=== PATIENT | female | born 1940 | race Caucasian/White ===

== ENCOUNTER → 2017-04-13 | Outpatient (CLI) | payer OTHER ==
--- NOTE | 2017-04-13 17:03 | RAD ---
HISTORY: Contusion of the lower back and pelvis. Study: Multiple views of the lumbar spine and sacrum. Comparison: None. Findings: 5 [id number] lumbar vertebra. Diffuse osteopenia. No acute fracture or listhesis. Multilevel di sc space narrowing, which is worse at L5-S1 with moderate disk height loss. Multilevel facet arthros is and small anterior disc osteophyte complexes. Mild osteoarthritis of the visualized SI joints. Th e sacrum and coccyx appear intact. Mild osteoarthritis of the bilateral hips. Vascular calcification s are seen. IMPRESSION: No acute osseous abnormality. Reported By:
--- NOTE | 2017-04-13 17:03 | RAD ---
HISTORY: Contusion of the lower back and pelvis. Study: Multiple views of the lumbar spine and sacrum. Comparison: None. Findings: 5 [id number] lumbar vertebra. Diffuse osteopenia. No acute fracture or listhesis. Multilevel di sc space narrowing, which is worse at L5-S1 with moderate disk height loss. Multilevel facet arthros is and small anterior disc osteophyte complexes. Mild osteoarthritis of the visualized SI joints. Th e sacrum and coccyx appear intact. Mild osteoarthritis of the bilateral hips. Vascular calcification s are seen. IMPRESSION: No acute osseous abnormality. Reported By:
== END ==
LOC: RAD 16:11
PROVIDERS: ATTEND Obstetrics & Gynecology Obstetrics
DX: S30.0XXA Contusion of lower back and pelvis, initial encounter (principal); X58.XXXA Exposure to other specified factors, initial encounter
CPT/HCPCS: 72110; 72220

== ENCOUNTER 2018-03-18 16:00 | Inpatient (IN) ==
[2018-03-18 15:43] LABS: APPEARANCE,URINE CLOUDY (CLEAR); BILIRUBIN,URINE 1+ (NEGATIVE); BLOOD/HEMOGLOBIN,URINE 1+ (NEGATIVE); COLOR,URINE DARK YELLOW (YELLOW); GLUCOSE, URINE NEGATIVE (NEGATIVE); KETONES,URINE 1+ (NEGATIVE); LEUKOCYTE ESTERASE ,URINE 1+ (NEGATIVE); NITRITES,URINE NEGATIVE (NEGATIVE); PROTEIN,URINE 2+ (NEGATIVE); UROBILINOGEN,URINE 1+ (NORMAL)
[2018-03-18 15:46] LABS: AMORPHOUS SEDIMENT,UR 3+ /HPF (NEGATIVE); BACTERIA,URINE NEGATIVE /HPF (NEGATIVE); RBC,URINE 0-2 /HPF (NONE SEEN); SQUAMOUS EPITHELIAL CELL,UR RARE /HPF (NEGATIVE)
[2018-03-18 15:47] LABS: HYALINE CASTS, URINE FEW /LPF (NEGATIVE)
--- NOTE | 2018-03-18 15:57 | CT ---
CT abdomen and pelvis without contrast Indication: Abdominal pain with nausea vomiting and concern for free air on recent KUB Comparison: KUB performed on same day Technique: Multiple axial images of the abdomen and pelvis were obtained from the lung bases to the pubic symphy sis without the administration of IV contrast. Findings: Lung bases demonstrate scarring/atelectasis within the right lung base. Large volume free air is note d within the abdomen. The multiple foci of gas are noted throughout the peritoneal cavity. There is a lso gas noted within the right retroperitoneum adjacent to the kidney. Given limitations of a noncontrast examination no focal hepatic lesion is identified. The gallbladder is surgically absent. The spleen, pancreas and adrenal glands are unremarkable. There is moderate co mmon bile duct dilatation the level the ampulla without obstructing stone or mass visualized. The adr enal glands are normal. Neither kidney demonstrates evidence of nephrolithiasis, hydronephrosis or ma ss. Urinary bladder is collapsed around a Anderson catheter. Bilateral inguinal hernias are noted both t he which contain loops of small bowel . There is diffuse fluid distention of multiple loops of small bowel. No transition point identified. Stomach demonstrates circumferential focal bowel wall thickeni ng within the distal stomach for example on axial image 34 and coronal image 11 with adjacent mildly enlarged perigastric lymph nodes. The rectum and colon are unremarkable aside for distal colonic dive rticulosis without evidence of acute diverticulitis. The small amount of stranding is noted within th e perineum and mesenteric. Calcified atherosclerotic disease is noted within the normal caliber abdom inal aorta. Review of bone windows demonstrates no acute osseous abnormality. There is moderate degen erative change noted within the lower lumbar spine with a grade 1 anterolisthesis of L4. Impression: 1.Moderate amount of free intraperitoneal air with small amount of free air noted within the right re troperitoneum. Large volume non localizing fluid is noted within the right lower quadrant which is alvarez spicious for developing abscess formation. Site of perforation is not definitely identified. There is focal circumferential thickening of the distal stomach with adjacent enlarged perigastric lymph node s which is suspicious for underlying ulcer or gastric malignancy and potentially a source of perforat ion; however it there is no localizing fluid collection seen in this location to confirm site of perf oration. Other considerations would include decompression of a small-bowel obstruction given bilatera l inguinal hernias containing loops of herniated small bowel. Surgical consultation is recommended. 2. Distal colonic diverticulosis without evidence of acute diverticulitis. 3. Refer to above for other incidental findings. Reported By:
[~2018-03-18 16:00] MED LIST: BREVIBLOC ONE; CIPRO IV 400 MG PREMIX* 400 MG/200 ML IV.SOLN. IV SCH; DIPRIVAN VIAL ONE; EPHEDRINE SULFATE INJ ONE; FLAGYL IV PREMIX 500 MG BAG 500 MG/100 ML BAG IV SCH; NEOSTIGMINE INJ ONE; NORCURON INJ 10 MG VIAL ONE; NS 1000 ML 1,000 ML ONE; QUELICIN (OR ANECTINE) ONE; ROBINUL ONE; SUPRANE IN ONE; VERSED ONE; ZOFRAN INJ 4 MG VIAL ONE
[2018-03-18] MEDS ORDERED: PROTONIX INJ 40 MG VIAL ONE (16:08)
[2018-03-18] MEDS: BACITRACIN VIAL ONE ×2 (17:03→19:17)
[2018-03-18 17:38] LABS: BASOPHILS # (AUTO) 0.1 X10^3/uL (0.0-0.1); BASOPHILS % (AUTO) 0.6 % (0.2-1.0); HEMOGLOBIN 13.2 g/dL (12.0-16.0); LYMPHOCYTES # (AUTO) 0.7 X10^3/uL (1.3-2.9); LYMPHOCYTES % (AUTO) 4.8 % (21.0-51.0); MEAN CORPUSCULAR HEMOGLOBIN 31.1 pg (27.0-34.0); MEAN CORPUSCULAR HGB CONC 33.8 g/dL (33.0-35.0); MEAN CORPUSCULAR VOLUME 92.1 fL (80.0-100.0); MEAN PLATELET VOLUME 9.8 fL (7.4-11.0); MONOCYTES # (AUTO) 0.5 x10^3/uL (0.3-0.8); MONOCYTES % (AUTO) 3.6 % (0.0-13.0); NEUTROPHILS # (AUTO) 13.2 x10^3/uL (2.2-4.8); PLATELET COUNT 297 X10^3/uL (150.0-450.0); RED BLOOD COUNT 4.24 X10^6/uL (3.5-5.4); RED CELL DISTRIBUTION WIDTH 13.3 % (11.6-16.5); WHITE BLOOD COUNT 14.5 X10^3/uL (3.6-10.0)
[2018-03-18 17:39] LABS: BAND NEUTROPHILS % 11 % (0-10); PLATELET MORPHOLOGY COMMENT NORMAL (NORMAL)
[2018-03-18] MEDS ORDERED: NS 1000 ML 1,000 ML ONE (17:45)
[2018-03-18] MEDS ORDERED: FLAGYL IV PREMIX 500 MG BAG 500 MG/100 ML BAG IV ONE ×2 (18:00→23:42)
[2018-03-18] MEDS ORDERED: ANCEF IV ONE (18:00)
[2018-03-18] MEDS ORDERED: FENTANYL INJ 250 mcg ONE (18:01)
[2018-03-18] MEDS ORDERED: LR 1000 ML IV 1,000 ML IV ONE (19:33)
[2018-03-18 19:53] LABS: ALANINE AMINOTRANSFERASE 17 Units/L (12-78); ALBUMIN 3.4 g/dL (3.4-5.0); ALKALINE PHOSPHATASE 55 Units/L (46-116); ASPARTATE AMINO TRANSFERASE 13 Units/L (15-37); BLOOD UREA NITROGEN 35 mg/dL (7-18); CALCIUM 8.7 mg/dL (8.5-10.1); CARBON DIOXIDE 24.4 mmol/L (21-32); CHLORIDE 95 mmol/L (98-107); COR NA(FOR HYPERGLY) 136 mmol/L (136-145); SODIUM 133 mmol/L (136-145); TOTAL PROTEIN 7.7 g/dL (6.4-8.2); eGFR NON BLACK RACES 13 (>60)
[2018-03-18] MEDS ORDERED: ZOFRAN INJ 4 MG VIAL IVP PRN (20:01)
[2018-03-18] MEDS ORDERED: BENADRYL INJ 50 MG VIAL IVP PRN (20:01)
[2018-03-18] MEDS ORDERED: REGLAN INJ 10 MG VIAL IVP PRN (20:01)
[2018-03-18] MEDS ORDERED: DILAUDID INJ IVP PRN ×3 (20:01→22:37)
[2018-03-18] MEDS ORDERED: PHENERGAN INJ 25 MG IVP PRN (20:01)
[2018-03-18] MEDS ORDERED: D5 1/2 NS 1000 ML 1,000 ML IV ONE (21:48)
[2018-03-18] MEDS ORDERED: ZOSYN VIAL 3.375 GRAMS 3.375 G in NS 100 ML IV + SPIKE MINIBAG* 100 ML IV SCH (22:00)
--- NOTE | 2018-03-18 22:06 | OR.GENERIC ---
Post-Op Note Generic - Post-Op Note Operative Report: exploratory laparotomy , partial gastrectomy with Billroth II gastro jejunostomy findings : perforated distal gastric ulcer posteriorly with peritonitis .. large Lt inguinal hernia EBL 200 cc . pt did well , no complication . see OR report
[2018-03-18] MEDS ORDERED: D5 1/2 NS + KCL 20 MEQ/L 1,000 ML IV PRN (22:37)
[2018-03-18] MEDS: ZOSYN VIAL 2.25 GRAMS 2.25 G in NS 100 ML IV + SPIKE MINIBAG* 100 ML IV SCH (22:50)
[2018-03-18] MEDS ORDERED: PHARMACY CONSULT - DOSE _____ XX SCH (23:45)
[2018-03-19] MEDS: D5 1/2 NS 1000 ML 1,000 ML IV SCH ×4 (00:07→23:45)
[2018-03-19 00:14] LABS: BASOPHILS % (AUTO) 0.3 % (0.2-1.0); HEMATOCRIT 37.4 % (36.0-47.0); HEMOGLOBIN 12.4 g/dL (12.0-16.0); LYMPHOCYTES # (AUTO) 0.7 X10^3/uL (1.3-2.9); LYMPHOCYTES % (AUTO) 8.4 % (21.0-51.0); MEAN CORPUSCULAR HEMOGLOBIN 31.2 pg (27.0-34.0); MEAN CORPUSCULAR HGB CONC 33.3 g/dL (33.0-35.0); MEAN CORPUSCULAR VOLUME 93.9 fL (80.0-100.0); MEAN PLATELET VOLUME 9.7 fL (7.4-11.0); MONOCYTES # (AUTO) 0.4 x10^3/uL (0.3-0.8); MONOCYTES % (AUTO) 4.3 % (0.0-13.0); NEUTROPHILS # (AUTO) 7.7 x10^3/uL (2.2-4.8); PLATELET COUNT 251 X10^3/uL (150.0-450.0); RED BLOOD COUNT 3.98 X10^6/uL (3.5-5.4); RED CELL DISTRIBUTION WIDTH 13.5 % (11.6-16.5); WHITE BLOOD COUNT 8.9 X10^3/uL (3.6-10.0)
[2018-03-19 00:24] LABS: ALBUMIN 2.3 g/dL (3.4-5.0); CALCIUM 6.7 mg/dL (8.5-10.1); CARBON DIOXIDE 19.3 mmol/L (21-32); COR CA(FOR HYPOALB) 8.1 mg/dL (8.5-10.1); CREATININE 2.69 mg/dL (0.55-1.02)
[2018-03-19] MEDS ORDERED: FLAGYL IV PREMIX 500 MG BAG 500 MG/100 ML BAG IV SCH ×2 (03:00→06:00)
[2018-03-19] MEDS: FLAGYL IV PREMIX 500 MG BAG 500 MG/100 ML BAG IV SCH ×3 (05:19→17:33)
[2018-03-19] MEDS: ZOSYN VIAL 2.25 GRAMS 2.25 G in NS 100 ML IV + SPIKE MINIBAG* 100 ML IV SCH ×3 (05:19→21:08)
[2018-03-19] MEDS ORDERED: ZOSYN IV SCH (06:00)
[2018-03-19] MEDS ORDERED: NS IV SCH (06:00)
[2018-03-19] MEDS ORDERED: SPIKE MINIBAG IV SCH (06:00)
[2018-03-19 06:48] LABS: ALBUMIN 2.2 g/dL (3.4-5.0); CALCIUM 6.9 mg/dL (8.5-10.1); CARBON DIOXIDE 21.7 mmol/L (21-32); COR CA(FOR HYPOALB) 8.3 mg/dL (8.5-10.1); CREATININE 2.49 mg/dL (0.55-1.02); TOTAL PROTEIN 5.6 g/dL (6.4-8.2)
[2018-03-19] MEDS ORDERED: POTASSIUM CHL 60 MEQ/NS 0.45% 500 ML IV PRN (06:57)
[2018-03-19] MEDS ORDERED: POTASSIUM CHLORIDE LIQ 20 MEQ UDC PO PRN (06:57)
[2018-03-19] MEDS ORDERED: K-LYTE EFFERVESCENT PO PRN (06:57)
[2018-03-19] MEDS ORDERED: K-RIDER 10 MEQ/NS 100 ML 10 MEQ/100 ML BAG IV PRN (06:57)
[2018-03-19] MEDS ORDERED: POTASSIUM CHL 40 MEQ/NS 0.45% 500 ML IV PRN (06:57)
[2018-03-19] MEDS ORDERED: NS 1000 ML 2,000 ML IV ONE (07:49)
[2018-03-19 08:03] LABS: BASOPHILS % (AUTO) 0.6 % (0.2-1.0); EOSINOPHILS % (AUTO) 0.9 % (0.9-2.9); HEMATOCRIT 37.2 % (36.0-47.0); HEMOGLOBIN 12.6 g/dL (12.0-16.0); MEAN CORPUSCULAR HEMOGLOBIN 31.3 pg (27.0-34.0); MEAN CORPUSCULAR HGB CONC 33.8 g/dL (33.0-35.0); MEAN CORPUSCULAR VOLUME 92.8 fL (80.0-100.0); MEAN PLATELET VOLUME 10.2 fL (7.4-11.0); MONOCYTES # (AUTO) 0.3 x10^3/uL (0.3-0.8); MONOCYTES % (AUTO) 4.8 % (0.0-13.0); NEUTROPHILS # (AUTO) 4.1 x10^3/uL (2.2-4.8); NEUTROPHILS % (AUTO) 75.7 % (42.0-75.0); PLATELET COUNT 258 X10^3/uL (150.0-450.0); RED BLOOD COUNT 4.01 X10^6/uL (3.5-5.4); RED CELL DISTRIBUTION WIDTH 13.6 % (11.6-16.5); WHITE BLOOD COUNT 5.4 X10^3/uL (3.6-10.0)
--- NOTE | 2018-03-19 08:16 | DR.PROGNOT ---
Hospital Progress Notes - Progress Note for Day of: Progress Note Date: 03/19/18 - Chief Complaint Chief Complaint: PO day 1 , s/p gastrectomy for large perforated distal gastric and duodenal ulcer , repair of Lt inguinal hernia .. doing very well today , urine OP still on the low side . no bile drainage in KADI,. afebrile . - Past Medical Family Social History Past Med/Fam/Surg Hx: No changes since H&P Allergies: Allergies No Known Drug Allergies Allergy (Verified 03/18/18 15:04) - Review Of Systems ROS: No change since H&P - Vital Signs Vital Signs: Temperature 98.4 F Pulse Rate [Apical] 112 Pulse Rate [Bilateral Radial] 79 Pulse Rate 130 Respiratory Rate 20 Blood Pressure [RIGHT WRIST] 125/58 Blood Pressure 158/73 O2 Sat by Pulse Oximetry 97 - Physical Exam GI:Auscultation: Decreased GI: Tenderness: Diffuse, Moderate (soft abdomen with generalized tenderness , BS hypoactive .) Speech Pattern: Clear, Appropriate - Laboratory and Diagnostics Result Diagrams: 03/19/18 05:14 03/19/18 05:14 Labs: 03/18/18 19:36 Abdomen Gram Stain - Final Laboratory WBC 5.4 X10^3/uL (3.6-10.0) 03/19/18 05:14 RBC 4.01 X10^6/uL (3.5-5.4) 03/19/18 05:14 Hgb 12.6 g/dL (12.0-16.0) 03/19/18 05:14 Hct 37.2 % (36.0-47.0) 03/19/18 05:14 MCV 92.8 fL (80.0-100.0) 03/19/18 05:14 MCH 31.3 pg (27.0-34.0) 03/19/18 05:14 MCHC 33.8 g/dL (33.0-35.0) 03/19/18 05:14 RDW 13.6 % (11.6-16.5) 03/19/18 05:14 Plt Count 258 X10^3/uL (150.0-450.0) 03/19/18 05:14 Plt Count Comment Adequate (ADEQUATE) 03/18/18 11:23 MPV 10.2 fL (7.4-11.0) 03/19/18 05:14 Neut % (Auto) 75.7 % (42.0-75.0) H 03/19/18 05:14 Lymph % (Auto) 18.0 % (21.0-51.0) L 03/19/18 05:14 [place] % (Auto) 4.8 % (0.0-13.0) 03/19/18 05:14 Eos % (Auto) 0.9 % (0.9-2.9) 03/19/18 05:14 Baso % (Auto) 0.6 % (0.2-1.0) 03/19/18 05:14 Neut # (Auto) 4.1 x10^3/uL (2.2-4.8) 03/19/18 05:14 Lymph # (Auto) 1.0 X10^3/uL (1.3-2.9) L 03/19/18 05:14 [place] # (Auto) 0.3 x10^3/uL (0.3-0.8) 03/19/18 05:14 Eos # (Auto) 0.0 x10^3/uL (0.0-0.2) 03/19/18 05:14 Baso # (Auto) 0.0 X10^3/uL (0.0-0.1) 03/19/18 05:14 Absolute Nucleated RBC 0.0 /100WBC 03/19/18 05:14 Total Counted 100 03/18/18 11:23 Neutrophils % (Manual) 77 % (39-76) H 03/18/18 11:23 Band Neutrophils % 11 % (0-10) H 03/18/18 11:23 Lymphocytes % (Manual) 11 % (13-43) L 03/18/18 11:23 Monocytes % (Manual) 1 % (4-9) L 03/18/18 11:23 Plt Morphology Comment Normal (NORMAL) 03/18/18 11:23 RBC Morphology Normal (NORMAL) 03/18/18 11:23 Sodium 135 mmol/L (136-145) L 03/19/18 05:14 Corrected Sodium 136 mmol/L (136-145) 03/19/18 05:14 Potassium 4.1 mmol/L (3.5-5.1) 03/19/18 05:14 Chloride 103 mmol/L (98-107) 03/19/18 05:14 Carbon Dioxide 21.7 mmol/L (21-32) 03/19/18 05:14 BUN 34 mg/dL (7-18) H 03/19/18 05:14 Creatinine 2.49 mg/dL (0.55-1.02) H 03/19/18 05:14 Est GFR (MDRD) Af Amer 24 (>60) L 03/19/18 05:14 Est GFR (MDRD) Non-Af 20 (>60) L 03/19/18 05:14 Glucose 124 mg/dL (65-99) H 03/19/18 05:14 Calcium 6.9 mg/dL (8.5-10.1) L 03/19/18 05:14 Corrected Calcium 8.3 mg/dL (8.5-10.1) L 03/19/18 05:14 Magnesium 1.4 mg/dL (1.7-2.9) L 03/19/18 05:14 Total Bilirubin 0.40 mg/dL (0.2-1.0) 03/19/18 05:14 AST 26 Units/L (15-37) 03/19/18 05:14 ALT 16 Units/L (12-78) 03/19/18 05:14 Alkaline Phosphatase 45 Units/L (46-116) L 03/19/18 05:14 Total Protein 5.6 g/dL (6.4-8.2) L 03/19/18 05:14 Albumin 2.2 g/dL (3.4-5.0) L 03/19/18 05:14 Globulin 3.4 g/dL (2.5-4.5) 03/19/18 05:14 Albumin/Globulin Ratio 0.6 Ratio (1.1-2.1) L 03/19/18 05:14 Specimen Type Catherized urine 03/18/18 15:17 Urine Color Dark yellow (YELLOW) 03/18/18 15:17 Urine Appearance Cloudy (CLEAR) 03/18/18 15:17 Urine pH 5.0 (5.0 - 8.0) 03/18/18 15:17 Ur Specific [place] 1.020 (1.000-1.030) 03/18/18 15:17 Urine Protein 2+ (NEGATIVE) 03/18/18 15:17 Urine Glucose (UA) Negative (NEGATIVE) 03/18/18 15:17 Urine Ketones 1+ (NEGATIVE) 03/18/18 15:17 Urine Occult Blood 1+ (NEGATIVE) 03/18/18 15:17 Urine Nitrite Negative (NEGATIVE) 03/18/18 15:17 Urine Bilirubin 1+ (NEGATIVE) 03/18/18 15:17 Urine Urobilinogen 1+ (NORMAL) 03/18/18 15:17 Ur Leukocyte Esterase 1+ (NEGATIVE) 03/18/18 15:17 Urine RBC 0-2 /HPF (NONE SEEN) 03/18/18 15:17 Urine WBC 0-2 /HPF (NONE SEEN) 03/18/18 15:17 Ur Squamous Epith Cells Rare /HPF (NEGATIVE) 03/18/18 15:17 Amorphous Sediment 3+ /HPF (NEGATIVE) 03/18/18 15:17 Urine Bacteria Negative /HPF (NEGATIVE) 03/18/18 15:17 Hyaline Casts Few /LPF (NEGATIVE) 03/18/18 15:17 Ur Culture Indicated? No/not indicated 03/18/18 15:17 Tissue Pathology To follow 03/18/18 22:58 - Assessment and Plan 1: perforated large distal gastric and duodenal ulcer. peritonitis . Lt inguinal hernia. dehydration . s/p gastrectomy . same PO care , ATB . DVT prophylaxis , IVF , OOB
[2018-03-19] MEDS: PROTONIX INJ 40 MG VIAL IVP SCH (08:55)
[2018-03-19] MEDS: ARICEPT TAB 10 MG PO SCH (08:56)
[2018-03-19] MEDS: LOVENOX INJ 40 MG SYR SC SCH (08:56)
[2018-03-19] MEDS ORDERED: LOVENOX INJ 40 MG SYR SC SCH (09:00)
[2018-03-19] MEDS ORDERED: CIPRO IV 400 MG PREMIX* 400 MG/200 ML IV.SOLN. IV SCH (09:00)
[2018-03-19] MEDS: MAGNESIUM SULFATE 1 GRAM/100 mL PREMIX 1 GM/100 ML BAG IV PRN ×4 (12:10→21:09)
[2018-03-19 12:15] VITALS: BMI 24.6
[2018-03-19] MEDS ORDERED: ROPINIROLE PO SCH (21:00)
[2018-03-19] MEDS: REQUIP PO SCH (21:07)
[2018-03-19] MEDS: AMBIEN PO SCH (22:24)
[2018-03-20] MEDS: FLAGYL IV PREMIX 500 MG BAG 500 MG/100 ML BAG IV SCH ×4 (04:00→18:00)
[2018-03-20] MEDS: D5 1/2 NS 1000 ML 1,000 ML IV SCH ×2 (04:32→06:44)
[2018-03-20] MEDS: ZOSYN VIAL 2.25 GRAMS 2.25 G in NS 100 ML IV + SPIKE MINIBAG* 100 ML IV SCH ×3 (05:40→21:18)
[2018-03-20 06:06] LABS: BASOPHILS % (AUTO) 0.5 % (0.2-1.0); EOSINOPHILS # (AUTO) 0.2 x10^3/uL (0.0-0.2); EOSINOPHILS % (AUTO) 3.6 % (0.9-2.9); HEMATOCRIT 29.8 % (36.0-47.0); HEMOGLOBIN 10.4 g/dL (12.0-16.0); LYMPHOCYTES % (AUTO) 14.7 % (21.0-51.0); MEAN CORPUSCULAR HEMOGLOBIN 31.7 pg (27.0-34.0); MEAN CORPUSCULAR HGB CONC 34.9 g/dL (33.0-35.0); MEAN PLATELET VOLUME 9.1 fL (7.4-11.0); MONOCYTES # (AUTO) 0.3 x10^3/uL (0.3-0.8); MONOCYTES % (AUTO) 4.5 % (0.0-13.0); NEUTROPHILS % (AUTO) 76.7 % (42.0-75.0); PLATELET COUNT 226 X10^3/uL (150.0-450.0); RED BLOOD COUNT 3.28 X10^6/uL (3.5-5.4); RED CELL DISTRIBUTION WIDTH 13.4 % (11.6-16.5); WHITE BLOOD COUNT 6.6 X10^3/uL (3.6-10.0)
[2018-03-20 06:29] LABS: ALANINE AMINOTRANSFERASE 24 Units/L (12-78); ALBUMIN 1.9 g/dL (3.4-5.0); ALKALINE PHOSPHATASE 48 Units/L (46-116); ASPARTATE AMINO TRANSFERASE 37 Units/L (15-37); BLOOD UREA NITROGEN 21 mg/dL (7-18); CALCIUM 7.1 mg/dL (8.5-10.1); CARBON DIOXIDE 22.7 mmol/L (21-32); CHLORIDE 106 mmol/L (98-107); COR CA(FOR HYPOALB) 8.8 mg/dL (8.5-10.1); CREATININE 1.57 mg/dL (0.55-1.02); MAGNESIUM 2.5 mg/dL (1.7-2.9); SODIUM 137 mmol/L (136-145); TOTAL PROTEIN 5.2 g/dL (6.4-8.2); eGFR NON BLACK RACES 34 (>60)
[2018-03-20] MEDS: ARICEPT TAB 10 MG PO SCH (08:20)
[2018-03-20] MEDS: LOVENOX INJ 40 MG SYR SC SCH (08:20)
[2018-03-20] MEDS: PROTONIX INJ 40 MG VIAL IVP SCH (08:20)
--- NOTE | 2018-03-20 09:55 | DR.PROGNOT ---
Hospital Progress Notes - Progress Note for Day of: Progress Note Date: 03/20/18 - Chief Complaint Chief Complaint: PO day 2 , s/p gastrectomy for large perforated distal gastric and duodenal ulcer , repair of Lt inguinal hernia .. doing very well today ,. minimal drainage in NGT. no bile drainage in KADI,. renal function is improving . - Past Medical Family Social History Past Med/Fam/Surg Hx: No changes since H&P Allergies: Allergies No Known Drug Allergies Allergy (Verified 03/18/18 15:04) - Review Of Systems ROS: No change since H&P - Vital Signs Vital Signs: Temperature 99.3 F Pulse Rate [Apical] 86 Pulse Rate [Bilateral Radial] 79 Pulse Rate 88 Respiratory Rate 22 Blood Pressure [RIGHT WRIST] 144/65 Blood Pressure 158/73 O2 Sat by Pulse Oximetry 100 - Physical Exam GI:Auscultation: Decreased GI: Tenderness: Diffuse, Moderate (soft abdomen with generalized tenderness , BS hypoactive .) Speech Pattern: Clear, Appropriate - Laboratory and Diagnostics Result Diagrams: 03/20/18 04:42 03/20/18 04:42 Labs: 03/18/18 19:36 Abdomen Gram Stain - Final 03/18/18 19:36 Abdomen Wound Culture - Preliminary Laboratory WBC 6.6 X10^3/uL (3.6-10.0) 03/20/18 04:42 RBC 3.28 X10^6/uL (3.5-5.4) L 03/20/18 04:42 Hgb 10.4 g/dL (12.0-16.0) L D 03/20/18 04:42 Hct 29.8 % (36.0-47.0) L 03/20/18 04:42 MCV 91.0 fL (80.0-100.0) 03/20/18 04:42 MCH 31.7 pg (27.0-34.0) 03/20/18 04:42 MCHC 34.9 g/dL (33.0-35.0) 03/20/18 04:42 RDW 13.4 % (11.6-16.5) 03/20/18 04:42 Plt Count 226 X10^3/uL (150.0-450.0) 03/20/18 04:42 Plt Count Comment Adequate (ADEQUATE) 03/18/18 11:23 MPV 9.1 fL (7.4-11.0) 03/20/18 04:42 Neut % (Auto) 76.7 % (42.0-75.0) H 03/20/18 04:42 Lymph % (Auto) 14.7 % (21.0-51.0) L 03/20/18 04:42 [place] % (Auto) 4.5 % (0.0-13.0) 03/20/18 04:42 Eos % (Auto) 3.6 % (0.9-2.9) H 03/20/18 04:42 Baso % (Auto) 0.5 % (0.2-1.0) 03/20/18 04:42 Neut # (Auto) 5.0 x10^3/uL (2.2-4.8) H 03/20/18 04:42 Lymph # (Auto) 1.0 X10^3/uL (1.3-2.9) L 03/20/18 04:42 [place] # (Auto) 0.3 x10^3/uL (0.3-0.8) 03/20/18 04:42 Eos # (Auto) 0.2 x10^3/uL (0.0-0.2) 03/20/18 04:42 Baso # (Auto) 0.0 X10^3/uL (0.0-0.1) 03/20/18 04:42 Absolute Nucleated RBC 0.0 /100WBC 03/20/18 04:42 Total Counted 100 03/18/18 11:23 Neutrophils % (Manual) 77 % (39-76) H 03/18/18 11:23 Band Neutrophils % 11 % (0-10) H 03/18/18 11:23 Lymphocytes % (Manual) 11 % (13-43) L 03/18/18 11:23 Monocytes % (Manual) 1 % (4-9) L 03/18/18 11:23 Plt Morphology Comment Normal (NORMAL) 03/18/18 11:23 RBC Morphology Normal (NORMAL) 03/18/18 11:23 Sodium 137 mmol/L (136-145) 03/20/18 04:42 Corrected Sodium TNP 03/20/18 04:42 Potassium 3.9 mmol/L (3.5-5.1) 03/20/18 04:42 Chloride 106 mmol/L (98-107) 03/20/18 04:42 Carbon Dioxide 22.7 mmol/L (21-32) 03/20/18 04:42 BUN 21 mg/dL (7-18) H 03/20/18 04:42 Creatinine 1.57 mg/dL (0.55-1.02) H 03/20/18 04:42 Est GFR (MDRD) Af Amer 41 (>60) L 03/20/18 04:42 Est GFR (MDRD) Non-Af 34 (>60) L 03/20/18 04:42 Glucose 97 mg/dL (65-99) 03/20/18 04:42 Calcium 7.1 mg/dL (8.5-10.1) L 03/20/18 04:42 Corrected Calcium 8.8 mg/dL (8.5-10.1) 03/20/18 04:42 Magnesium 2.5 mg/dL (1.7-2.9) 03/20/18 04:42 Total Bilirubin 0.40 mg/dL (0.2-1.0) 03/20/18 04:42 AST 37 Units/L (15-37) 03/20/18 04:42 ALT 24 Units/L (12-78) 03/20/18 04:42 Alkaline Phosphatase 48 Units/L (46-116) 03/20/18 04:42 Total Protein 5.2 g/dL (6.4-8.2) L 03/20/18 04:42 Albumin 1.9 g/dL (3.4-5.0) L 03/20/18 04:42 Globulin 3.3 g/dL (2.5-4.5) 03/20/18 04:42 Albumin/Globulin Ratio 0.6 Ratio (1.1-2.1) L 03/20/18 04:42 Specimen Type Catherized urine 03/18/18 15:17 Urine Color Dark yellow (YELLOW) 03/18/18 15:17 Urine Appearance Cloudy (CLEAR) 03/18/18 15:17 Urine pH 5.0 (5.0 - 8.0) 03/18/18 15:17 Ur Specific [place] 1.020 (1.000-1.030) 03/18/18 15:17 Urine Protein 2+ (NEGATIVE) 03/18/18 15:17 Urine Glucose (UA) Negative (NEGATIVE) 03/18/18 15:17 Urine Ketones 1+ (NEGATIVE) 03/18/18 15:17 Urine Occult Blood 1+ (NEGATIVE) 03/18/18 15:17 Urine Nitrite Negative (NEGATIVE) 03/18/18 15:17 Urine Bilirubin 1+ (NEGATIVE) 03/18/18 15:17 Urine Urobilinogen 1+ (NORMAL) 03/18/18 15:17 Ur Leukocyte Esterase 1+ (NEGATIVE) 03/18/18 15:17 Urine RBC 0-2 /HPF (NONE SEEN) 03/18/18 15:17 Urine WBC 0-2 /HPF (NONE SEEN) 03/18/18 15:17 Ur Squamous Epith Cells Rare /HPF (NEGATIVE) 03/18/18 15:17 Amorphous Sediment 3+ /HPF (NEGATIVE) 03/18/18 15:17 Urine Bacteria Negative /HPF (NEGATIVE) 03/18/18 15:17 Hyaline Casts Few /LPF (NEGATIVE) 03/18/18 15:17 Ur Culture Indicated? No/not indicated 03/18/18 15:17 Tissue Pathology To follow 03/18/18 22:58 - Assessment and Plan 1: perforated large distal gastric and duodenal ulcer. peritonitis . Lt inguinal hernia. dehydration . s/p gastrectomy . same PO care , ATB . DVT prophylaxis , IVF , OOB. will d/c NGT and keep NPO except some ice ..
[2018-03-20] MEDS ORDERED: GLUCOPHAGE XR PO SCH (13:00)
[2018-03-20] MEDS ORDERED: PATIENT'S HOME MEDICATION (Lisinopril-Hydrochlorothiazide [Lisinopril-Hydrochlorothiazide] PO SCH (13:00)
[2018-03-20] MEDS: LR 1000 ML IV 1,000 ML IV SCH ×2 (13:20→21:26)
[2018-03-20] MEDS ORDERED: NEURONTIN CAP 400 MG PO SCH (21:00)
[2018-03-20] MEDS ORDERED: PATIENT'S HOME MEDICATION (Gabapentin [Gabapentin] 1 TAB) PO SCH (21:00)
[2018-03-20] MEDS ORDERED: NEURONTIN CAP 400 MG PO ONE (21:08)
[2018-03-20] MEDS: GLUCOPHAGE XR PO SCH (21:13)
[2018-03-20] MEDS: REQUIP PO SCH (21:14)
[2018-03-20] MEDS: AMBIEN PO SCH (21:19)
[2018-03-20] MEDS: NEURONTIN CAP 400 MG PO SCH (21:46)
[2018-03-21] MEDS: LR 1000 ML IV 1,000 ML IV SCH ×2 (05:08→13:59)
[2018-03-21] MEDS: FLAGYL IV PREMIX 500 MG BAG 500 MG/100 ML BAG IV SCH ×4 (05:08→18:55)
[2018-03-21] MEDS: ZOSYN VIAL 2.25 GRAMS 2.25 G in NS 100 ML IV + SPIKE MINIBAG* 100 ML IV SCH ×3 (06:07→22:14)
[2018-03-21 06:28] LABS: BASOPHILS % (AUTO) 0.4 % (0.2-1.0); EOSINOPHILS # (AUTO) 0.2 x10^3/uL (0.0-0.2); EOSINOPHILS % (AUTO) 3.6 % (0.9-2.9); HEMATOCRIT 26.9 % (36.0-47.0); HEMOGLOBIN 9.4 g/dL (12.0-16.0); LYMPHOCYTES # (AUTO) 0.9 X10^3/uL (1.3-2.9); MEAN CORPUSCULAR HEMOGLOBIN 31.7 pg (27.0-34.0); MEAN CORPUSCULAR HGB CONC 35.1 g/dL (33.0-35.0); MEAN CORPUSCULAR VOLUME 90.3 fL (80.0-100.0); MEAN PLATELET VOLUME 8.6 fL (7.4-11.0); MONOCYTES # (AUTO) 0.3 x10^3/uL (0.3-0.8); NEUTROPHILS # (AUTO) 3.9 x10^3/uL (2.2-4.8); PLATELET COUNT 222 X10^3/uL (150.0-450.0); RED BLOOD COUNT 2.98 X10^6/uL (3.5-5.4); RED CELL DISTRIBUTION WIDTH 13.1 % (11.6-16.5); WHITE BLOOD COUNT 5.3 X10^3/uL (3.6-10.0)
[2018-03-21 06:32] LABS: ALANINE AMINOTRANSFERASE 23 Units/L (12-78); ALBUMIN 1.7 g/dL (3.4-5.0); ALKALINE PHOSPHATASE 45 Units/L (46-116); ASPARTATE AMINO TRANSFERASE 24 Units/L (15-37); BLOOD UREA NITROGEN 14 mg/dL (7-18); CALCIUM 7.5 mg/dL (8.5-10.1); CARBON DIOXIDE 20.9 mmol/L (21-32); CHLORIDE 106 mmol/L (98-107); COR CA(FOR HYPOALB) 9.3 mg/dL (8.5-10.1); CREATININE 0.93 mg/dL (0.55-1.02); SODIUM 137 mmol/L (136-145); TOTAL PROTEIN 4.7 g/dL (6.4-8.2); eGFR NON BLACK RACES > 60 (>60)
[2018-03-21] MEDS ORDERED: ZESTRIL TAB 20 MG ONE (09:40)
[2018-03-21] MEDS: TOPROL XL PO SCH (09:46)
[2018-03-21] MEDS: ZESTRIL TAB 20 MG PO SCH (09:47)
[2018-03-21] MEDS: PROTONIX INJ 40 MG VIAL IVP SCH (09:48)
[2018-03-21] MEDS: LOVENOX INJ 40 MG SYR SC SCH (09:48)
[2018-03-21] MEDS: ARICEPT TAB 10 MG PO SCH (09:49)
[2018-03-21] MEDS: NORCO 5/325 MG TAB PO PRN (09:51)
--- NOTE | 2018-03-21 10:41 | DR.PROGNOT ---
Hospital Progress Notes - Progress Note for Day of: Progress Note Date: 03/21/18 - Chief Complaint Chief Complaint: PO day 3 , s/p gastrectomy for large perforated distal gastric and duodenal ulcer , repair of Lt inguinal hernia .. doing well today ,. c/o abdominal pain , no BM yet. minimal drainage in NGT. no bile drainage in KADI, . renal function is improving and back to normal . - Past Medical Family Social History Past Med/Fam/Surg Hx: No changes since H&P Allergies: Allergies No Known Drug Allergies Allergy (Verified 03/18/18 15:04) - Review Of Systems ROS: No change since H&P - Vital Signs Vital Signs: Temperature 98.0 F Pulse Rate [Apical] 89 Pulse Rate [Bilateral Radial] 79 Pulse Rate 88 Respiratory Rate 20 Blood Pressure [RIGHT WRIST] 187/86 Blood Pressure 158/73 O2 Sat by Pulse Oximetry 95 - Physical Exam Respiratory: Normal (clear lung both sides) GI:Auscultation: Decreased GI: Tenderness: Diffuse, Moderate (soft abdomen with generalized tenderness , BS hypoactive .) Speech Pattern: Clear, Appropriate - Laboratory and Diagnostics Result Diagrams: 03/21/18 04:47 03/21/18 04:47 Labs: 03/18/18 19:36 Abdomen Gram Stain - Final 03/18/18 19:36 Abdomen Wound Culture - Preliminary Laboratory WBC 5.3 X10^3/uL (3.6-10.0) 03/21/18 04:47 RBC 2.98 X10^6/uL (3.5-5.4) L 03/21/18 04:47 Hgb 9.4 g/dL (12.0-16.0) L 03/21/18 04:47 Hct 26.9 % (36.0-47.0) L 03/21/18 04:47 MCV 90.3 fL (80.0-100.0) 03/21/18 04:47 MCH 31.7 pg (27.0-34.0) 03/21/18 04:47 MCHC 35.1 g/dL (33.0-35.0) H 03/21/18 04:47 RDW 13.1 % (11.6-16.5) 03/21/18 04:47 Plt Count 222 X10^3/uL (150.0-450.0) 03/21/18 04:47 Plt Count Comment Adequate (ADEQUATE) 03/18/18 11:23 MPV 8.6 fL (7.4-11.0) 03/21/18 04:47 Neut % (Auto) 74.0 % (42.0-75.0) 03/21/18 04:47 Lymph % (Auto) 17.0 % (21.0-51.0) L 03/21/18 04:47 [place] % (Auto) 5.0 % (0.0-13.0) 03/21/18 04:47 Eos % (Auto) 3.6 % (0.9-2.9) H 03/21/18 04:47 Baso % (Auto) 0.4 % (0.2-1.0) 03/21/18 04:47 Neut # (Auto) 3.9 x10^3/uL (2.2-4.8) 03/21/18 04:47 Lymph # (Auto) 0.9 X10^3/uL (1.3-2.9) L 03/21/18 04:47 [place] # (Auto) 0.3 x10^3/uL (0.3-0.8) 03/21/18 04:47 Eos # (Auto) 0.2 x10^3/uL (0.0-0.2) 03/21/18 04:47 Baso # (Auto) 0.0 X10^3/uL (0.0-0.1) 03/21/18 04:47 Absolute Nucleated RBC 0.0 /100WBC 03/21/18 04:47 Total Counted 100 03/18/18 11:23 Neutrophils % (Manual) 77 % (39-76) H 03/18/18 11:23 Band Neutrophils % 11 % (0-10) H 03/18/18 11:23 Lymphocytes % (Manual) 11 % (13-43) L 03/18/18 11:23 Monocytes % (Manual) 1 % (4-9) L 03/18/18 11:23 Plt Morphology Comment Normal (NORMAL) 03/18/18 11:23 RBC Morphology Normal (NORMAL) 03/18/18 11:23 Sodium 137 mmol/L (136-145) 03/21/18 04:47 Corrected Sodium TNP 03/21/18 04:47 Potassium 3.5 mmol/L (3.5-5.1) 03/21/18 04:47 Chloride 106 mmol/L (98-107) 03/21/18 04:47 Carbon Dioxide 20.9 mmol/L (21-32) L 03/21/18 04:47 BUN 14 mg/dL (7-18) 03/21/18 04:47 Creatinine 0.93 mg/dL (0.55-1.02) 03/21/18 04:47 Est GFR (MDRD) Af Amer > 60 (>60) 03/21/18 04:47 Est GFR (MDRD) Non-Af > 60 (>60) 03/21/18 04:47 Glucose 96 mg/dL (65-99) 03/21/18 04:47 Calcium 7.5 mg/dL (8.5-10.1) L 03/21/18 04:47 Corrected Calcium 9.3 mg/dL (8.5-10.1) 03/21/18 04:47 Magnesium 2.5 mg/dL (1.7-2.9) 03/20/18 04:42 Ferritin 364 ng/mL (8-252) H 03/21/18 04:47 Total Bilirubin 0.40 mg/dL (0.2-1.0) 03/21/18 04:47 AST 24 Units/L (15-37) 03/21/18 04:47 ALT 23 Units/L (12-78) 03/21/18 04:47 Alkaline Phosphatase 45 Units/L (46-116) L 03/21/18 04:47 Total Protein 4.7 g/dL (6.4-8.2) L 03/21/18 04:47 Albumin 1.7 g/dL (3.4-5.0) L 03/21/18 04:47 Globulin 3.0 g/dL (2.5-4.5) 03/21/18 04:47 Albumin/Globulin Ratio 0.6 Ratio (1.1-2.1) L 03/21/18 04:47 Specimen Type Catherized urine 03/18/18 15:17 Urine Color Dark yellow (YELLOW) 03/18/18 15:17 Urine Appearance Cloudy (CLEAR) 03/18/18 15:17 Urine pH 5.0 (5.0 - 8.0) 03/18/18 15:17 Ur Specific [place] 1.020 (1.000-1.030) 03/18/18 15:17 Urine Protein 2+ (NEGATIVE) 03/18/18 15:17 Urine Glucose (UA) Negative (NEGATIVE) 03/18/18 15:17 Urine Ketones 1+ (NEGATIVE) 03/18/18 15:17 Urine Occult Blood 1+ (NEGATIVE) 03/18/18 15:17 Urine Nitrite Negative (NEGATIVE) 03/18/18 15:17 Urine Bilirubin 1+ (NEGATIVE) 03/18/18 15:17 Urine Urobilinogen 1+ (NORMAL) 03/18/18 15:17 Ur Leukocyte Esterase 1+ (NEGATIVE) 03/18/18 15:17 Urine RBC 0-2 /HPF (NONE SEEN) 03/18/18 15:17 Urine WBC 0-2 /HPF (NONE SEEN) 03/18/18 15:17 Ur Squamous Epith Cells Rare /HPF (NEGATIVE) 03/18/18 15:17 Amorphous Sediment 3+ /HPF (NEGATIVE) 03/18/18 15:17 Urine Bacteria Negative /HPF (NEGATIVE) 03/18/18 15:17 Hyaline Casts Few /LPF (NEGATIVE) 03/18/18 15:17 Ur Culture Indicated? No/not indicated 03/18/18 15:17 Tissue Pathology To follow 03/18/18 22:58 - Assessment and Plan 1: perforated large distal gastric and duodenal ulcer. peritonitis . Lt inguinal hernia. dehydration . s/p gastrectomy . same PO care , ATB . DVT prophylaxis , IVF , OOB. will start on clear liquid
[2018-03-21] MEDS ORDERED: ZESTRIL TAB 20 MG PO SCH (18:00)
[2018-03-21] MEDS ORDERED: HYDROCHLOROTHIAZIDE 12.5 MG CAP PO SCH (18:00)
[2018-03-21] MEDS ORDERED: NEURONTIN CAP 400 MG PO SCH (21:00)
[2018-03-21] MEDS: NEURONTIN CAP 400 MG PO SCH (22:12)
[2018-03-21] MEDS: AMBIEN PO SCH (22:12)
[2018-03-21] MEDS: GLUCOPHAGE XR PO SCH (22:13)
[2018-03-21] MEDS: REQUIP PO SCH (22:13)
[2018-03-22] MEDS: FLAGYL IV PREMIX 500 MG BAG 500 MG/100 ML BAG IV SCH ×4 (00:35→19:27)
[2018-03-22] MEDS: LR 1000 ML IV 1,000 ML IV SCH ×2 (01:00→06:37)
[2018-03-22] MEDS: ZOSYN VIAL 2.25 GRAMS 2.25 G in NS 100 ML IV + SPIKE MINIBAG* 100 ML IV SCH ×3 (05:55→22:34)
[2018-03-22 06:11] LABS: ALANINE AMINOTRANSFERASE 23 Units/L (12-78); ALBUMIN 1.8 g/dL (3.4-5.0); ALKALINE PHOSPHATASE 43 Units/L (46-116); ASPARTATE AMINO TRANSFERASE 23 Units/L (15-37); BLOOD UREA NITROGEN 8 mg/dL (7-18); CALCIUM 7.1 mg/dL (8.5-10.1); CARBON DIOXIDE 22.7 mmol/L (21-32); CHLORIDE 108 mmol/L (98-107); COR CA(FOR HYPOALB) 8.9 mg/dL (8.5-10.1); CREATININE 0.86 mg/dL (0.55-1.02); SODIUM 140 mmol/L (136-145); TOTAL PROTEIN 4.6 g/dL (6.4-8.2); eGFR NON BLACK RACES > 60 (>60)
[2018-03-22 06:23] LABS: BASOPHILS % (AUTO) 0.5 % (0.2-1.0); EOSINOPHILS # (AUTO) 0.5 x10^3/uL (0.0-0.2); EOSINOPHILS % (AUTO) 5.5 % (0.9-2.9); HEMOGLOBIN 10.4 g/dL (12.0-16.0); LYMPHOCYTES # (AUTO) 0.9 X10^3/uL (1.3-2.9); LYMPHOCYTES % (AUTO) 11.2 % (21.0-51.0); MEAN CORPUSCULAR HEMOGLOBIN 31.4 pg (27.0-34.0); MEAN CORPUSCULAR HGB CONC 34.7 g/dL (33.0-35.0); MEAN CORPUSCULAR VOLUME 90.5 fL (80.0-100.0); MEAN PLATELET VOLUME 8.7 fL (7.4-11.0); MONOCYTES # (AUTO) 0.6 x10^3/uL (0.3-0.8); MONOCYTES % (AUTO) 6.7 % (0.0-13.0); NEUTROPHILS # (AUTO) 6.3 x10^3/uL (2.2-4.8); NEUTROPHILS % (AUTO) 76.1 % (42.0-75.0); PLATELET COUNT 280 X10^3/uL (150.0-450.0); RED BLOOD COUNT 3.31 X10^6/uL (3.5-5.4); WHITE BLOOD COUNT 8.3 X10^3/uL (3.6-10.0)
[2018-03-22 07:10] LABS: PLATELET MORPHOLOGY COMMENT NORMAL (NORMAL)
[2018-03-22] MEDS ORDERED: ZESTRIL TAB 20 MG ONE (07:51)
[2018-03-22] MEDS: NORCO 5/325 MG TAB PO PRN ×2 (07:56→20:56)
[2018-03-22] MEDS: TOPROL XL PO SCH (09:00)
[2018-03-22] MEDS: ZESTRIL TAB 20 MG PO SCH (09:00)
[2018-03-22] MEDS: PROTONIX INJ 40 MG VIAL IVP SCH (09:00)
[2018-03-22] MEDS: ARICEPT TAB 10 MG PO SCH (10:17)
[2018-03-22] MEDS: LOVENOX INJ 40 MG SYR SC SCH (10:17)
--- NOTE | 2018-03-22 13:11 | DR.PROGNOT ---
Hospital Progress Notes - Progress Note for Day of: Progress Note Date: 03/22/18 - Chief Complaint Chief Complaint: PO day 4 , s/p gastrectomy for large perforated distal gastric and duodenal ulcer , repair of Lt inguinal hernia .. doing well today ,. c/o abdominal pain , no BM yet. minimal drainage in KADI - Past Medical Family Social History Past Med/Fam/Surg Hx: No changes since H&P Allergies: Allergies No Known Drug Allergies Allergy (Verified 03/18/18 15:04) - Review Of Systems ROS: No change since H&P - Vital Signs Vital Signs: Temperature 98.4 F Pulse Rate [Apical] 87 Pulse Rate [Bilateral Radial] 87 Pulse Rate 83 Respiratory Rate 20 Blood Pressure [RIGHT WRIST] 197/96 Blood Pressure 158/73 O2 Sat by Pulse Oximetry 96 - Physical Exam Respiratory: Normal (clear lung both sides) GI:Auscultation: Decreased GI: Tenderness: Diffuse, Moderate (soft abdomen with generalized tenderness , BS hypoactive .) Mood Description: Calm Speech Pattern: Clear, Appropriate - Laboratory and Diagnostics Result Diagrams: 03/22/18 04:46 03/22/18 04:46 Labs: 03/18/18 19:36 Abdomen Gram Stain - Final 03/18/18 19:36 Abdomen Wound Culture - Final Laboratory WBC 8.3 X10^3/uL (3.6-10.0) 03/22/18 04:46 RBC 3.31 X10^6/uL (3.5-5.4) L 03/22/18 04:46 Hgb 10.4 g/dL (12.0-16.0) L 03/22/18 04:46 Hct 30.0 % (36.0-47.0) L 03/22/18 04:46 MCV 90.5 fL (80.0-100.0) 03/22/18 04:46 MCH 31.4 pg (27.0-34.0) 03/22/18 04:46 MCHC 34.7 g/dL (33.0-35.0) 03/22/18 04:46 RDW 13.0 % (11.6-16.5) 03/22/18 04:46 Plt Count 280 X10^3/uL (150.0-450.0) 03/22/18 04:46 Plt Count Comment Adequate (ADEQUATE) 03/22/18 04:46 MPV 8.7 fL (7.4-11.0) 03/22/18 04:46 Neut % (Auto) 76.1 % (42.0-75.0) H 03/22/18 04:46 Lymph % (Auto) 11.2 % (21.0-51.0) L 03/22/18 04:46 [place] % (Auto) 6.7 % (0.0-13.0) 03/22/18 04:46 Eos % (Auto) 5.5 % (0.9-2.9) H 03/22/18 04:46 Baso % (Auto) 0.5 % (0.2-1.0) 03/22/18 04:46 Neut # (Auto) 6.3 x10^3/uL (2.2-4.8) H 03/22/18 04:46 Lymph # (Auto) 0.9 X10^3/uL (1.3-2.9) L 03/22/18 04:46 [place] # (Auto) 0.6 x10^3/uL (0.3-0.8) 03/22/18 04:46 Eos # (Auto) 0.5 x10^3/uL (0.0-0.2) H 03/22/18 04:46 Baso # (Auto) 0.0 X10^3/uL (0.0-0.1) 03/22/18 04:46 Absolute Nucleated RBC 0.2 /100WBC 03/22/18 04:46 Total Counted 100 03/18/18 11:23 Neutrophils % (Manual) 77 % (39-76) H 03/18/18 11:23 Band Neutrophils % 11 % (0-10) H 03/18/18 11:23 Lymphocytes % (Manual) 11 % (13-43) L 03/18/18 11:23 Monocytes % (Manual) 1 % (4-9) L 03/18/18 11:23 Plt Clumps, EDTA Rare 03/22/18 04:46 Plt Morphology Comment Normal (NORMAL) 03/22/18 04:46 RBC Morphology Normal (NORMAL) 03/22/18 04:46 Sodium 140 mmol/L (136-145) 03/22/18 04:46 Corrected Sodium TNP 03/22/18 04:46 Potassium 3.6 mmol/L (3.5-5.1) 03/22/18 04:46 Chloride 108 mmol/L (98-107) H 03/22/18 04:46 Carbon Dioxide 22.7 mmol/L (21-32) 03/22/18 04:46 BUN 8 mg/dL (7-18) 03/22/18 04:46 Creatinine 0.86 mg/dL (0.55-1.02) 03/22/18 04:46 Est GFR (MDRD) Af Amer > 60 (>60) 03/22/18 04:46 Est GFR (MDRD) Non-Af > 60 (>60) 03/22/18 04:46 Glucose 103 mg/dL (65-99) H 03/22/18 04:46 Calcium 7.1 mg/dL (8.5-10.1) L 03/22/18 04:46 Corrected Calcium 8.9 mg/dL (8.5-10.1) 03/22/18 04:46 Magnesium 2.5 mg/dL (1.7-2.9) 03/20/18 04:42 Ferritin 364 ng/mL (8-252) H 03/21/18 04:47 Total Bilirubin 0.40 mg/dL (0.2-1.0) 03/22/18 04:46 AST 23 Units/L (15-37) 03/22/18 04:46 ALT 23 Units/L (12-78) 03/22/18 04:46 Alkaline Phosphatase 43 Units/L (46-116) L 03/22/18 04:46 Total Protein 4.6 g/dL (6.4-8.2) L 03/22/18 04:46 Albumin 1.8 g/dL (3.4-5.0) L 03/22/18 04:46 Globulin 2.8 g/dL (2.5-4.5) 03/22/18 04:46 Albumin/Globulin Ratio 0.6 Ratio (1.1-2.1) L 03/22/18 04:46 Specimen Type Catherized urine 03/18/18 15:17 Urine Color Dark yellow (YELLOW) 03/18/18 15:17 Urine Appearance Cloudy (CLEAR) 03/18/18 15:17 Urine pH 5.0 (5.0 - 8.0) 03/18/18 15:17 Ur Specific [place] 1.020 (1.000-1.030) 03/18/18 15:17 Urine Protein 2+ (NEGATIVE) 03/18/18 15:17 Urine Glucose (UA) Negative (NEGATIVE) 03/18/18 15:17 Urine Ketones 1+ (NEGATIVE) 03/18/18 15:17 Urine Occult Blood 1+ (NEGATIVE) 03/18/18 15:17 Urine Nitrite Negative (NEGATIVE) 03/18/18 15:17 Urine Bilirubin 1+ (NEGATIVE) 03/18/18 15:17 Urine Urobilinogen 1+ (NORMAL) 03/18/18 15:17 Ur Leukocyte Esterase 1+ (NEGATIVE) 03/18/18 15:17 Urine RBC 0-2 /HPF (NONE SEEN) 03/18/18 15:17 Urine WBC 0-2 /HPF (NONE SEEN) 03/18/18 15:17 Ur Squamous Epith Cells Rare /HPF (NEGATIVE) 03/18/18 15:17 Amorphous Sediment 3+ /HPF (NEGATIVE) 03/18/18 15:17 Urine Bacteria Negative /HPF (NEGATIVE) 03/18/18 15:17 Hyaline Casts Few /LPF (NEGATIVE) 03/18/18 15:17 Ur Culture Indicated? No/not indicated 03/18/18 15:17 Tissue Pathology To follow 03/18/18 22:58 - Assessment and Plan 1: perforated large distal gastric and duodenal ulcer. peritonitis . Lt inguinal hernia. dehydration . s/p gastrectomy . same PO care , ATB . DVT prophylaxis , IVF , OOB. will start on full liquid only.
[2018-03-22] MEDS: GLUCOPHAGE XR PO SCH (20:54)
[2018-03-22] MEDS: AMBIEN PO SCH (20:54)
[2018-03-22] MEDS: NEURONTIN CAP 400 MG PO SCH (20:55)
[2018-03-22] MEDS: REQUIP PO SCH (20:55)
[2018-03-23] MEDS: FLAGYL IV PREMIX 500 MG BAG 500 MG/100 ML BAG IV SCH ×2 (01:01→06:02)
[2018-03-23 06:09] LABS: BASOPHILS % (AUTO) 0.7 % (0.2-1.0); EOSINOPHILS # (AUTO) 0.3 x10^3/uL (0.0-0.2); EOSINOPHILS % (AUTO) 6.9 % (0.9-2.9); HEMATOCRIT 28.6 % (36.0-47.0); HEMOGLOBIN 10.3 g/dL (12.0-16.0); LYMPHOCYTES # (AUTO) 1.2 X10^3/uL (1.3-2.9); LYMPHOCYTES % (AUTO) 26.5 % (21.0-51.0); MEAN CORPUSCULAR HEMOGLOBIN 31.9 pg (27.0-34.0); MEAN CORPUSCULAR HGB CONC 35.9 g/dL (33.0-35.0); MEAN CORPUSCULAR VOLUME 88.9 fL (80.0-100.0); MEAN PLATELET VOLUME 8.2 fL (7.4-11.0); MONOCYTES # (AUTO) 0.7 x10^3/uL (0.3-0.8); MONOCYTES % (AUTO) 15.4 % (0.0-13.0); NEUTROPHILS # (AUTO) 2.3 x10^3/uL (2.2-4.8); NEUTROPHILS % (AUTO) 50.5 % (42.0-75.0); PLATELET COUNT 269 X10^3/uL (150.0-450.0); RED BLOOD COUNT 3.21 X10^6/uL (3.5-5.4); RED CELL DISTRIBUTION WIDTH 13.2 % (11.6-16.5); WHITE BLOOD COUNT 4.5 X10^3/uL (3.6-10.0)
[2018-03-23] MEDS: ZOSYN VIAL 2.25 GRAMS 2.25 G in NS 100 ML IV + SPIKE MINIBAG* 100 ML IV SCH (06:25)
[2018-03-23 06:28] LABS: ALANINE AMINOTRANSFERASE 21 Units/L (12-78); ALBUMIN 1.6 g/dL (3.4-5.0); ALKALINE PHOSPHATASE 40 Units/L (46-116); ASPARTATE AMINO TRANSFERASE 26 Units/L (15-37); BLOOD UREA NITROGEN 5 mg/dL (7-18); CALCIUM 6.7 mg/dL (8.5-10.1); CARBON DIOXIDE 25.3 mmol/L (21-32); CHLORIDE 109 mmol/L (98-107); COR CA(FOR HYPOALB) 8.6 mg/dL (8.5-10.1); CREATININE 0.81 mg/dL (0.55-1.02); SODIUM 141 mmol/L (136-145); TOTAL PROTEIN 4.2 g/dL (6.4-8.2); eGFR NON BLACK RACES > 60 (>60)
[2018-03-23] MEDS: LR 1000 ML IV 1,000 ML IV SCH (06:38)
[2018-03-23] MEDS ORDERED: ZESTRIL TAB 20 MG ONE (08:06)
[2018-03-23] MEDS: LOVENOX INJ 40 MG SYR SC SCH (09:15)
[2018-03-23] MEDS: ARICEPT TAB 10 MG PO SCH (09:35)
[2018-03-23] MEDS: TOPROL XL PO SCH (09:36)
[2018-03-23] MEDS: PROTONIX INJ 40 MG VIAL IVP SCH (09:36)
[2018-03-23] MEDS: ZESTRIL TAB 20 MG PO SCH (09:36)
[2018-03-23] MEDS ORDERED: K-DUR TAB 20 MEQ PO ONE (09:37)
[2018-03-23] MEDS: NORCO 5/325 MG TAB PO PRN (09:45)
[2018-03-23 12:03] VITALS: BP 161/75
== END 2018-03-23 14:10 | disposition home health service (06) | DRG 326 ==
LOC: ICU → MED/SURG 03-20 15:47
PROVIDERS: ADMIT Obstetrics & Gynecology Obstetrics; ATTEND Obstetrics & Gynecology Obstetrics
PROC: GASTERC (ICD-10-PCS; 2018-03-18 18:20)
DX: E87.6 Hypokalemia; K65.8 Other peritonitis; R10.84 Generalized abdominal pain; K40.90 Unilateral inguinal hernia, without obstruction or gangrene, not specified as recurrent; K25.5 Chronic or unspecified gastric ulcer with perforation; I95.89 Other hypotension; E86.0 Dehydration; R26.89 Other abnormalities of gait and mobility; N17.8 Other acute kidney failure
CPT/HCPCS: 36415; 74000; 74018; 74176; 80053; 81001; 82728; 83735; 85025; 87070; 87075; 87205; 88307; 93005; 93010; 97110; 97163; 97167; 99100; A4216; A4222; C9113; S0030; G0378; J0330; J0690; J0744; J1170; J1650; J2250; J2405; J2543; J2704; J2710; J3010; J3475; J3490; J7030; J7050; J7120; S5010

== ENCOUNTER 2018-04-27 13:32 | Observation (INO) ==
[2018-04-27 14:56] LABS: BILIRUBIN,URINE NEGATIVE (NEGATIVE); BLOOD/HEMOGLOBIN,URINE 3+ (NEGATIVE); GLUCOSE, URINE NEGATIVE (NEGATIVE); KETONES,URINE NEGATIVE (NEGATIVE); LEUKOCYTE ESTERASE ,URINE 1+ (NEGATIVE); NITRITES,URINE NEGATIVE (NEGATIVE); PROTEIN,URINE NEGATIVE (NEGATIVE); UROBILINOGEN,URINE NORMAL (NORMAL)
[2018-04-27 14:58] LABS: APPEARANCE,URINE CLEAR (CLEAR); COLOR,URINE YELLOW (YELLOW)
--- NOTE | 2018-04-27 14:59 | CT ---
CT abdomen and pelvis without contrast Indication: Abdominal pain with nausea and vomiting Comparison: 03/18/2018 Technique: Multiple axial images of the abdomen and pelvis were obtained from the lung bases to the pubic symphy sis without the administration of IV contrast. Findings: Lung bases are clear aside for mild scarring within the lower lobes. Dense calcified atherosclerotic disease of the coronary arteries. Given limitations of a noncontrast examination no focal hepatic les ion is identified. The gallbladder is absent. There is moderate common bile duct dilatation with rela tive abrupt transition within distal common bile duct seen on coronal image 17. The spleen and pancre as are within normal limits. Interval distal gastrectomy changes and gastrojejunal anastomosis is not ed. Additionally there is an anastomosis within the right upper quadrant as well. There is no evidenc e of mass or obstruction within the upper GI tract. Urinary bladder is thick walled however incomplet aletha distended. No pelvic or adnexal mass. The rectum is unremarkable. Moderate colonic diverticulosis noted within the distal colon. Left-sided inguinal hernia is again noted with herniated loops of sma ll bowel demonstrate no evidence of obstruction. Abdominal aorta demonstrates dense calcification the without evidence of aneurysmal dilatation. No evidence of free air identified within the abdomen or pelvis. Scarring within the midline anterior abdominal wall is noted. The review of bone windows demo nstrates no acute osseous abnormality. Stable degenerative changes within the lumbar spine and grade 1 anterolisthesis of L4. Impression: 1.Limited evaluation of the abdomen pelvis given lack of IV or oral contrast administration demonstra guzman no definite acute inflammatory process. There has been interval distal gastrectomy changes and an astomosis within the right upper quadrant. No free air or localizing fluid collection visualized with in the abdomen or pelvis. 2. Common bile duct dilatation with abrupt transition within distal common bile duct suspicious for u nderlying obstruction or stricture. Correlation with cholestatic function test and clinical history i s needed. 3. Left inguinal hernia containing a nonobstructed loop of small bowel is again noted. 4. Moderate colonic diverticulosis without evidence of acute diverticulitis. Reported By:
[2018-04-27 15:11] LABS: BACTERIA,URINE 1+ /HPF (NEGATIVE); RBC,URINE 0-2 /HPF (NONE SEEN); SQUAMOUS EPITHELIAL CELL,UR FEW /HPF (NEGATIVE)
[2018-04-27 15:12] LABS: MUCUS,URINE RARE /HPF (NEGATIVE)
[2018-04-27 15:30] LABS: ALANINE AMINOTRANSFERASE 15 Units/L (12-78); ALBUMIN 3.3 g/dL (3.4-5.0); ALKALINE PHOSPHATASE 52 Units/L (46-116); AMYLASE 53 Units/L (25-115); ASPARTATE AMINO TRANSFERASE 13 Units/L (15-37); BLOOD UREA NITROGEN 15 mg/dL (7-18); CALCIUM 9.5 mg/dL (8.5-10.1); CARBON DIOXIDE 28.6 mmol/L (21-32); CHLORIDE 100 mmol/L (98-107); COR CA(FOR HYPOALB) 10.1 mg/dL (8.5-10.1); CREATININE 0.82 mg/dL (0.55-1.02); LIPASE 257 Units/L (73-393); SODIUM 137 mmol/L (136-145); TOTAL PROTEIN 7.7 g/dL (6.4-8.2); eGFR NON BLACK RACES > 60 (>60)
[2018-04-27 15:42] LABS: BASOPHILS # (AUTO) 0.1 X10^3/uL (0.0-0.1); BASOPHILS % (AUTO) 1.2 % (0.2-1.0); EOSINOPHILS # (AUTO) 0.1 x10^3/uL (0.0-0.2); EOSINOPHILS % (AUTO) 2.3 % (0.9-2.9); HEMATOCRIT 35.4 % (36.0-47.0); HEMOGLOBIN 11.8 g/dL (12.0-16.0); LYMPHOCYTES # (AUTO) 1.7 X10^3/uL (1.3-2.9); LYMPHOCYTES % (AUTO) 26.5 % (21.0-51.0); MEAN CORPUSCULAR HEMOGLOBIN 30.4 pg (27.0-34.0); MEAN CORPUSCULAR HGB CONC 33.4 g/dL (33.0-35.0); MEAN CORPUSCULAR VOLUME 91.1 fL (80.0-100.0); MEAN PLATELET VOLUME 8.3 fL (7.4-11.0); MONOCYTES # (AUTO) 0.4 x10^3/uL (0.3-0.8); MONOCYTES % (AUTO) 6.7 % (0.0-13.0); NEUTROPHILS % (AUTO) 63.3 % (42.0-75.0); PLATELET COUNT 326 X10^3/uL (150.0-450.0); RED BLOOD COUNT 3.88 X10^6/uL (3.5-5.4); RED CELL DISTRIBUTION WIDTH 13.9 % (11.6-16.5); WHITE BLOOD COUNT 6.3 X10^3/uL (3.6-10.0)
[2018-04-27] MEDS ORDERED: MORPHINE SULFATE INJ 4 MG IVP ONE (16:06)
[2018-04-27] MEDS ORDERED: ZOFRAN INJ 4 MG VIAL IVP ONE (16:06)
[2018-04-27] MEDS ORDERED: ZOFRAN INJ 4 MG VIAL ONE (16:08)
[2018-04-27] MEDS ORDERED: MORPHINE SULFATE INJ 4 MG ONE (16:09)
[2018-04-27] MEDS ORDERED: ZOFRAN INJ 4 MG VIAL IVP PRN (20:25)
[2018-04-27] MEDS: PROTONIX INJ 40 MG VIAL IVP SCH (21:00)
[2018-04-27] MEDS: REQUIP PO SCH (21:37)
--- NOTE | 2018-04-27 21:37 | DR.H&P ---
H&P - History & Physical for Day of: H&P Date: 04/27/18 - Chief Complaint Chief Complaint: ABDOMINAL PAIN, NAUSEA/VOMITING - History of Present Illness History of Present Illness: IS A 77 YEAR OLD PATIENT OF WHO PRESENTED TO THE EMERGENCY ROOM WITH COMPLAINTS OF ABDOMINAL PAIN AND PERSISTENT NAUSEA FOR THE PAST 10 DAYS. PATIENT REPORTS UNDERGOING EXPLORATORY LAPAROTOMY WITH PARTIAL GASTRECTOMY AND INTRAABDOMINAL REPAIR OF LEFT INGUINAL HERNIA ON 03/18/2018. ON ARRIVAL, VITALS WERE 98.0-80-20-96%-169/70. LABS WERE OBTAINED. ABNORMAL LAB VALUES INCLUDE THE FOLLOWING: HGB 11.8, HCT 35.4, AST 13 , ALBUMIN 3.3. URINALYSIS REVEALED WBC 3-5, RBC 0-2, LEUKOCYTES 1+, BACTERIA 1+ , OCCULT BLOOD 3+. AN ABDOMEN/PELVIS CT WAS OBTAINED AND REVEALED: Limited evaluation of the abdomen pelvis given lack of IV or oral contrast administration demonstrates no definite acute inflammatory process. There has been interval distal gastrectomy changes and anastomosis within the right upper quadrant. No free air or localizing fluid collection visualized within the abdomen or pelvis. Common bile duct dilatation with abrupt transition within distal common bile duct suspicious for underlying obstruction or stricture. Correlation with cholestatic function test and clinical history is needed. Left inguinal hernia containing a non-obstructed loop of small bowel is again noted. Moderate colonic diverticulosis without evidence of acute diverticulitis. SHE WAS GIVEN MORPHINE 4MG IV X 1 AND ZOFRAN 4MG IV X 1 IN THE ER WITH ONLY SLIGHT IMPROVEMENT IN PAIN. SHE WAS ADMITTED FOR FURTHER EVALUATION AND TREATMENT. WE CONSULTED AND STARTED PATIENT ON NORMAL SALINE AT 100ML/HR, MORPHINE 2MG IV Q4H PRN, ZOFRAN 4MG IV Q6H PRN, PROTONIX 40MG IV DAILY, AND RESUMED HOME MEDICATIONS. WE PLAN TO FOLLOW UP WITH AM LABS AND CONTINUE TO MONITOR PATIENT. - Past Medical History Past Medical History: Diabetes, Hypertension - Past Surgical History Surgical History: Abdominal Surgery, Cholecystectomy - Social History Does patient currently use any type of tobacco product: No Have you used tobacco products in the last 12 months: No Type of Tobacco Use: None Does any household member use tobacco: No Alcohol Use: None Drug Use: None - Medications Home Medications: No Known Drug Allergies Allergy (Verified 03/18/18 15:04) - Review of Systems Constitutional: No Symptoms Reported Eyes: No Symptoms Reported ENT: No Symptoms Reported Respiratory: No Symptoms Reported Cardiovascular: No Symptoms Reported Gastrointestinal: Nausea, Vomiting, Abdominal Pain Genitourinary: No Symptoms Reported Musculoskeletal: No Symptoms Reported Skin: No Symptoms Reported Neurological: Weakness - Physical Exam Vital Signs: Temperature 98.0 F Pulse Rate [Left] 86 Pulse Rate 80 Respiratory Rate 20 Blood Pressure [RIGHT WRIST] 197/96 Blood Pressure [Left Arm] 137/80 Blood Pressure [Right Arm] 161/75 Blood Pressure 169/70 O2 Sat by Pulse Oximetry 96 Oriented: Normal Eyes: Normal Ear: Normal Nose: Normal Throat: Normal Respiratory: Clear Throughout Cardiovascular: Normal. negative: S3, S4, Murmur : Normal Auscultation: Bowel Sounds: Increased Palpation: Normal Tenderness: Diffuse, Moderate. negative: Rebound, Guarding, Rigidity Skin: Normal Musculoskeletal: Normal Psychiatric: Normal Mood Description: Calm Affect: Normal Speech Pattern: Clear - Assessment/Plan (1) Abdominal pain Qualifiers: Abdominal location: generalized Qualified Code(s): R10.84 - Generalized abdominal pain Status: Acute Plan: ADMIT, MORPHINE PRN, ZOFRAN PRN, PROTONIX 40MG IV DAILY, CONSULT , CONTINUE TO MONITOR - Allergies Allergies/Adverse Reactions: Allergies Allergy/AdvReac Type Severity Reaction Status Date / Time No Known Drug Allergies Allergy Verified 03/18/18 15:04
[2018-04-27] MEDS: AMBIEN PO SCH (21:38)
[2018-04-27] MEDS: MORPHINE SULFATE INJ 2 MG INJ IVP PRN (21:38)
[2018-04-27] MEDS: NS 1000 ML 1,000 ML IV SCH (21:38)
[2018-04-27] MEDS: NEURONTIN TAB 600 MG PO SCH (21:38)
[2018-04-27] MEDS ORDERED: PATIENT'S HOME MEDICATION (Gabapentin [Gabapentin] 1 TAB) PO SCH (22:00)
[2018-04-27] MEDS ORDERED: NEURONTIN CAP 400 MG PO SCH (22:00)
[2018-04-28 05:27] LABS: BASOPHILS # (AUTO) 0.1 X10^3/uL (0.0-0.1); BASOPHILS % (AUTO) 1.1 % (0.2-1.0); EOSINOPHILS # (AUTO) 0.3 x10^3/uL (0.0-0.2); HEMATOCRIT 30.2 % (36.0-47.0); HEMOGLOBIN 10.4 g/dL (12.0-16.0); LYMPHOCYTES # (AUTO) 1.5 X10^3/uL (1.3-2.9); MEAN CORPUSCULAR HEMOGLOBIN 31.5 pg (27.0-34.0); MEAN CORPUSCULAR HGB CONC 34.5 g/dL (33.0-35.0); MEAN CORPUSCULAR VOLUME 91.2 fL (80.0-100.0); MEAN PLATELET VOLUME 8.5 fL (7.4-11.0); MONOCYTES # (AUTO) 0.4 x10^3/uL (0.3-0.8); NEUTROPHILS # (AUTO) 2.8 x10^3/uL (2.2-4.8); NEUTROPHILS % (AUTO) 55.9 % (42.0-75.0); PLATELET COUNT 269 X10^3/uL (150.0-450.0); RED BLOOD COUNT 3.31 X10^6/uL (3.5-5.4); RED CELL DISTRIBUTION WIDTH 13.9 % (11.6-16.5)
[2018-04-28 05:40] LABS: ALANINE AMINOTRANSFERASE 11 Units/L (12-78); ALBUMIN 2.6 g/dL (3.4-5.0); ALKALINE PHOSPHATASE 43 Units/L (46-116); ASPARTATE AMINO TRANSFERASE 13 Units/L (15-37); BLOOD UREA NITROGEN 15 mg/dL (7-18); CALCIUM 8.9 mg/dL (8.5-10.1); CARBON DIOXIDE 29.1 mmol/L (21-32); CHLORIDE 106 mmol/L (98-107); CREATININE 0.87 mg/dL (0.55-1.02); SODIUM 139 mmol/L (136-145); TOTAL PROTEIN 6.2 g/dL (6.4-8.2); eGFR NON BLACK RACES > 60 (>60)
[2018-04-28] MEDS: NEURONTIN TAB 600 MG PO SCH ×3 (05:48→21:20)
[2018-04-28] MEDS: NS 1000 ML 1,000 ML IV SCH ×3 (05:48→21:25)
--- NOTE | 2018-04-28 06:24 | DR.NAUSEAF ---
HPI Time Seen Time seen: 15:00 Primary Care Physician Primary Care Physician: YESICA HPI Comment HPI Comment: RECENT SURGERY FOR PERFORATED VISCUS AND BOWEL OBSTRUCTION. NAUSEA AND VOMITING CAUSING PATIENT TO DECREASE INTAKE. PAST FEW DAYS, GETTING WORSE. TODAY, NOT HOLDING JAZMINE FLUID OR MEDICATION. NO FEVER. NO DIARRHEA. VOMITUS GASTRIC CONTENT. DR. BOONE, SURGEON WAS IN ED TO EVALUATE PATIENT. HE IS PATIENTS SURGEON. Complaints Chief Complaint Doctors Comments: ABDOMINAL PAIN, NAUSEA, VOMITING FEW DAYS, WORSE TODAY. Chief Complaint:: PT STATES SHE HAD SURGERY AROUND THE FIRST OF MARCH. PT STATES SHE HAS NOT BEEN ABLE TO KEEP ANYTHING DOWN SINCE THE SURGERY. PT STATES SHE HAS BEEN VOMITTING AND HAS LOST SOME WEIGHT Reviewed Nurses Notes Reviewed: Yes Source History Provided: Patient, Parent and Family Member Mode of Arrival Mode of Arrival: Ambulatory Timing Onset of Chief Complaint: 04/27/18 Severity Number of episodes of vomiting over last 24 hours: 10 Context Onset: Spontaneous Recent: None : No History of: Abdominal Operation and Diabetes Quality Quality: Bilious Associated Signs and Symptoms Abdominal Pain Quality: Cramping and Sharp Abdominal Pain Location: Diffuse Symptoms: Abdominal Pain PMH PMH Past Medical History: Yes Past Medical History: Diabetes and Hypertension Past Surgical History: Yes Surgical History: Abdominal Surgery and Cholecystectomy Past Surgical History Comment: PARTIAL HYSTERECTOMY Family History History of Family Medical Conditions: No Social History Does patient currently use any type of tobacco product: No Have you used tobacco products in the last 12 months: No Type of Tobacco Use: None Does any household member use tobacco: No Alcohol Use: None Do you use any recreational Drugs:: No Lives With: Spouse Lives Where: Home infectious screening In the last 2 months have you had wt loss of >10#?: NO Have you had fever, night sweats or hemotysis?: No Have you traveled outside the country in the last 6 months?: No Isolation: Standard ROS Review of Systems Constitutional: Weakness and Fatigue Eyes: negative Eye Pain, Blurred Vision, Discharge and Photophobia ENTM: negative Ear Discharge, Nose Pain and Nose Congestion Respiratoy: Non-Productive Cough and Short of Breath Cardiovascular: negative Chest Pain, Edema and Syncope Gastrointestinal/Abdominal: Abdominal Pain, Nausea and Vomiting Genitourinary: negative Dysuria, Frequency and Hematuria Neurological: Weakness and Dizziness Musculoskeletal: Muscle Pain Integumentary: Dryness; negative Juandice Hematologic/Lymphatic: Easy Bleeding Endocrine: Increased Thirst; negative Flushing Psychiatric: No Symptoms Reported All Other Systems: Reviewed and Negative PE Vital Signs Vitals: Temperature 98.4 F Pulse Rate [Left] 65 Pulse Rate 80 Respiratory Rate 18 Blood Pressure [RIGHT WRIST] 197/96 Blood Pressure [Left Arm] 90/65 Blood Pressure [Right Arm] 161/75 Blood Pressure 169/70 O2 Sat by Pulse Oximetry 99 General Limitations: No Limitations General Appearance: Alert and In Distress (MILD DISTRESS.) Head Head Exam: Normal Inspection, Atraumatic and Normocephalic Eyes Eye exam: Normal Appearance, PERRL and EOMI; negative Scleral Icterus, Conjunctival Injection and Periorbital Tenderness ENT ENT Exam: Normal External Ear Exam, Mucous Membranes Dry and TM's Normal Bilaterally; negative Normal Oropharynx (THROAT SLIGHTLY RED. TONSILS NOT ENLARGE.) Neck Neck Exam: Trachea Midline; negative Tenderness, Meningismus and Lymphadenopathy Chest Chest Inspection: Symmetric Chest Wall Rise Respiratory Respiratory Exam: Respiratory Distress (MILD RESP DISTRESS.) Respiratory Exam: Bilateral: Rhonchi and Lower: Rhonchi Cardiovascular Cardiovascular Exam: Tachycardia Abdominal Exam Abdominal Exam: Normal Bowel Sounds, Soft, Distention and Tenderness; negative Ascites Abdominal Tenderness: Diffuse and Moderate Rectal Rectal Exam: Deferred External Exam: Female: Deferred : Speculum Exam (Female): Deferred : Bimanual Exam (female): Deferred Extremities Extremities Exam: Normal Inspection Back Back Exam: Paraspinal Tenderness (LOWER BACK) Neurologic Neurological Exam: Alert, Oriented X3, CN II-XII Intact and Normal Gait; negative Motor Sensory Deficit Psychiatric Psychiatric Exam: Normal Affect and Normal Mood Skin Skin Exam: Dry and Erythema MDM Additional Information Obtained Additional Information Obtained From: Old Records and Family Differential Diagnosis Differential Diagnosis: Considerations may Include:: Bowel Obstruction, Gastroenteritis, Pancreatitis, PUD, Urinary Tract Infection and Urolithiasis COURSE Treatment Treatment: SEE ORDERS. IV FLUIDS IN ED. PAIN AND NAUSEA MED IN ED. Reevaluation 1st: Improved (PAIN AND NAUSEA IMPROVE WITH MEDS.) Consultation Consultation Comments: DISCUSS PATIENT WITH DR. MAYFIELD. HE WILL ADMIT PATIENT. Education/Counseling Education/Counseling: Patient, Family and Education Educated On: Treatment and Diagnosis ROR Labs Reviewed Laboratory Results Reviewed?: Yes Result Diagrams: 04/27/18 15:11 04/27/18 15:11 Laboratory: WBC 6.3 X10^3/uL (3.6-10.0) 04/27/18 15:11 RBC 3.88 X10^6/uL (3.5-5.4) 04/27/18 15:11 Hgb 11.8 g/dL (12.0-16.0) L 04/27/18 15:11 Hct 35.4 % (36.0-47.0) L 04/27/18 15:11 MCV 91.1 fL (80.0-100.0) 04/27/18 15:11 MCH 30.4 pg (27.0-34.0) 04/27/18 15:11 MCHC 33.4 g/dL (33.0-35.0) 04/27/18 15:11 RDW 13.9 % (11.6-16.5) 04/27/18 15:11 Plt Count 326 X10^3/uL (150.0-450.0) 04/27/18 15:11 MPV 8.3 fL (7.4-11.0) 04/27/18 15:11 Neut % (Auto) 63.3 % (42.0-75.0) 04/27/18 15:11 Lymph % (Auto) 26.5 % (21.0-51.0) 04/27/18 15:11 [place] % (Auto) 6.7 % (0.0-13.0) 04/27/18 15:11 Eos % (Auto) 2.3 % (0.9-2.9) 04/27/18 15:11 Baso % (Auto) 1.2 % (0.2-1.0) H 04/27/18 15:11 Neut # (Auto) 4.0 x10^3/uL (2.2-4.8) 04/27/18 15:11 Lymph # (Auto) 1.7 X10^3/uL (1.3-2.9) 04/27/18 15:11 [place] # (Auto) 0.4 x10^3/uL (0.3-0.8) 04/27/18 15:11 Eos # (Auto) 0.1 x10^3/uL (0.0-0.2) 04/27/18 15:11 Baso # (Auto) 0.1 X10^3/uL (0.0-0.1) 04/27/18 15:11 Absolute Nucleated RBC 0.0 /100WBC 04/27/18 15:11 Sodium 137 mmol/L (136-145) 04/27/18 15:11 Corrected Sodium TNP 04/27/18 15:11 Potassium 4.0 mmol/L (3.5-5.1) 04/27/18 15:11 Chloride 100 mmol/L (98-107) 04/27/18 15:11 Carbon Dioxide 28.6 mmol/L (21-32) 04/27/18 15:11 BUN 15 mg/dL (7-18) 04/27/18 15:11 Creatinine 0.82 mg/dL (0.55-1.02) 04/27/18 15:11 Est GFR (MDRD) Af Amer > 60 (>60) 04/27/18 15:11 Est GFR (MDRD) Non-Af > 60 (>60) 04/27/18 15:11 Glucose 90 mg/dL (65-99) 04/27/18 15:11 POC Glucose (mg/dL) 88 mg/dL (65-99) 04/28/18 05:30 Calcium 9.5 mg/dL (8.5-10.1) 04/27/18 15:11 Corrected Calcium 10.1 mg/dL (8.5-10.1) 04/27/18 15:11 Total Bilirubin 0.40 mg/dL (0.2-1.0) 04/27/18 15:11 AST 13 Units/L (15-37) L 04/27/18 15:11 ALT 15 Units/L (12-78) 04/27/18 15:11 Alkaline Phosphatase 52 Units/L (46-116) 04/27/18 15:11 Total Protein 7.7 g/dL (6.4-8.2) 04/27/18 15:11 Albumin 3.3 g/dL (3.4-5.0) L 04/27/18 15:11 Globulin 4.4 g/dL (2.5-4.5) 04/27/18 15:11 Albumin/Globulin Ratio 0.8 Ratio (1.1-2.1) L 04/27/18 15:11 Amylase 53 Units/L (25-115) 04/27/18 15:11 Lipase 257 Units/L (73-393) 04/27/18 15:11 Specimen Type Clean catch urine 04/27/18 14:42 Urine Color Yellow (YELLOW) 04/27/18 14:42 Urine Appearance Clear (CLEAR) 04/27/18 14:42 Urine pH 5.0 (5.0 - 8.0) 04/27/18 14:42 Ur Specific [place] 1.020 (1.000-1.030) 04/27/18 14:42 Urine Protein Negative (NEGATIVE) 04/27/18 14:42 Urine Glucose (UA) Negative (NEGATIVE) 04/27/18 14:42 Urine Ketones Negative (NEGATIVE) 04/27/18 14:42 Urine Occult Blood 3+ (NEGATIVE) 04/27/18 14:42 Urine Nitrite Negative (NEGATIVE) 04/27/18 14:42 Urine Bilirubin Negative (NEGATIVE) 04/27/18 14:42 Urine Urobilinogen Normal (NORMAL) 04/27/18 14:42 Ur Leukocyte Esterase 1+ (NEGATIVE) 04/27/18 14:42 Urine RBC 0-2 /HPF (NONE SEEN) 04/27/18 14:42 Urine WBC 3-5 /HPF (NONE SEEN) 04/27/18 14:42 Ur Squamous Epith Cells Few /HPF (NEGATIVE) 04/27/18 14:42 Urine Bacteria 1+ /HPF (NEGATIVE) 04/27/18 14:42 Urine Mucus Rare /HPF (NEGATIVE) 04/27/18 14:42 Ur Culture Indicated? No/not indicated 04/27/18 14:42 XRAY XRAY Findings: REPORT DISCUSS WITH PATIENT ABD HER . Diagnosis Discharge Problem: Abdominal pain
--- NOTE | 2018-04-28 06:41 | RAD ---
HISTORY: Abdominal pain Study: KUB Comparison: 03/18/2018 Technique: Supine abdomen Findings: The abdominal gas pattern is nonspecific and nonobstructive. No abnormal masses or abnormal calcifica tions are identified. Surgical clips are present in the right upper quadrant. Surgical sutures are pr esent in the left upper quadrant. Pneumoperitoneum cannot be excluded on a supine film. IMPRESSION: Unremarkable flat abdomen Reported By:
[2018-04-28] MEDS ORDERED: ZESTRIL TAB 20 MG ONE (08:27)
[2018-04-28] MEDS: PROTONIX INJ 40 MG VIAL IVP SCH ×2 (08:41→21:21)
[2018-04-28] MEDS: HYDROCHLOROTHIAZIDE 12.5 MG CAP PO SCH (08:41)
[2018-04-28] MEDS: ZESTRIL TAB 20 MG PO SCH (08:41)
[2018-04-28] MEDS ORDERED: PATIENT'S HOME MEDICATION (Lisinopril-Hydrochlorothiazide [Lisinopril-Hydrochlorothiazide] PO SCH (09:00)
[2018-04-28] MEDS: LEVSIN/MAALOX/LIDOC VISC PO SCH ×4 (09:23→21:21)
[2018-04-28] MEDS ORDERED: PROTONIX INJ 40 MG VIAL IVP SCH (10:00)
[2018-04-28] MEDS ORDERED: LR 1000 ML IV 1,000 ML IV ONE (10:01)
[2018-04-28] MEDS ORDERED: DIPRIVAN VIAL 20 ML ONE (10:23)
[2018-04-28] MEDS ORDERED: XYLOCAINE 2 % (PLAIN) ONE (10:23)
[2018-04-28] MEDS: PEPCID 20 MG IV PREMIX* 20 MG/50 ML BAG IV SCH ×2 (11:28→21:23)
[2018-04-28] MEDS: CARAFATE PO SCH ×2 (11:37→18:17)
--- NOTE | 2018-04-28 11:41 | OR.GENERIC ---
Post-Op Note Generic - Post-Op Note Operative Report: EGD w Bx . findings : S/P gastrectomy with patent anastomosis , no marginal ulcers or strtictures . 2- multiple gastric ulcers ,one is large aboput 3 cm . no bleeding .. several bx 's were obtained .. to keep on bland diet , small meals . no ASA , Motrin or other NSAID . Same Protonix 40 BID and Carafate one Grm TID .. F/U in 2 weeks . february D/S in am
[2018-04-28 14:59] VITALS: BMI 21.7
[2018-04-28] MEDS ORDERED: SNACK - Diabetic Appropriate PO SCH (20:00)
[2018-04-28] MEDS: REQUIP PO SCH (21:20)
[2018-04-28] MEDS: AMBIEN PO SCH (21:20)
[2018-04-28] MEDS: MORPHINE SULFATE INJ 2 MG INJ IVP PRN (21:30)
[2018-04-28] MEDS ORDERED: MILK OF MAGNESIA PO PRN (21:51)
[2018-04-29] MEDS: NS 1000 ML 1,000 ML IV SCH (02:39)
[2018-04-29] MEDS: NEURONTIN TAB 600 MG PO SCH (05:23)
[2018-04-29 06:17] LABS: BASOPHILS % (AUTO) 0.8 % (0.2-1.0); EOSINOPHILS # (AUTO) 0.3 x10^3/uL (0.0-0.2); EOSINOPHILS % (AUTO) 5.2 % (0.9-2.9); HEMATOCRIT 29.9 % (36.0-47.0); HEMOGLOBIN 10.2 g/dL (12.0-16.0); LYMPHOCYTES # (AUTO) 1.5 X10^3/uL (1.3-2.9); LYMPHOCYTES % (AUTO) 27.7 % (21.0-51.0); MEAN CORPUSCULAR HEMOGLOBIN 31.2 pg (27.0-34.0); MEAN CORPUSCULAR HGB CONC 34.1 g/dL (33.0-35.0); MEAN CORPUSCULAR VOLUME 91.7 fL (80.0-100.0); MEAN PLATELET VOLUME 8.7 fL (7.4-11.0); MONOCYTES # (AUTO) 0.4 x10^3/uL (0.3-0.8); MONOCYTES % (AUTO) 6.8 % (0.0-13.0); NEUTROPHILS # (AUTO) 3.3 x10^3/uL (2.2-4.8); NEUTROPHILS % (AUTO) 59.5 % (42.0-75.0); PLATELET COUNT 272 X10^3/uL (150.0-450.0); RED BLOOD COUNT 3.26 X10^6/uL (3.5-5.4); RED CELL DISTRIBUTION WIDTH 14.1 % (11.6-16.5); WHITE BLOOD COUNT 5.5 X10^3/uL (3.6-10.0)
[2018-04-29 06:39] LABS: ALANINE AMINOTRANSFERASE 11 Units/L (12-78); ALBUMIN 2.6 g/dL (3.4-5.0); ALKALINE PHOSPHATASE 46 Units/L (46-116); ASPARTATE AMINO TRANSFERASE 12 Units/L (15-37); BLOOD UREA NITROGEN 11 mg/dL (7-18); CALCIUM 8.6 mg/dL (8.5-10.1); CARBON DIOXIDE 28.5 mmol/L (21-32); CHLORIDE 106 mmol/L (98-107); COR CA(FOR HYPOALB) 9.7 mg/dL (8.5-10.1); CREATININE 0.78 mg/dL (0.55-1.02); SODIUM 141 mmol/L (136-145); eGFR NON BLACK RACES > 60 (>60)
[2018-04-29] MEDS: CARAFATE PO SCH ×2 (06:39→12:05)
[2018-04-29] MEDS ORDERED: ZESTRIL TAB 20 MG ONE (07:30)
[2018-04-29] MEDS: PEPCID 20 MG IV PREMIX* 20 MG/50 ML BAG IV SCH (08:30)
[2018-04-29] MEDS: LEVSIN/MAALOX/LIDOC VISC PO SCH (08:31)
[2018-04-29] MEDS: ZESTRIL TAB 20 MG PO SCH (08:31)
[2018-04-29] MEDS: PROTONIX INJ 40 MG VIAL IVP SCH (08:31)
[2018-04-29] MEDS: HYDROCHLOROTHIAZIDE 12.5 MG CAP PO SCH (08:31)
[2018-04-29 09:32] VITALS: BP 134/64
[2018-04-29] MEDS: ROCEPHIN VIAL 1 GRAM 1 G in NS 100 ML IV + SPIKE MINIBAG* 100 ML IV SCH (10:17)
--- NOTE | 2018-05-11 15:26 | DR.CARTERD ---
- Discharge Summary for: Discharge Summary for Date of:: 04/29/18 - Admission Date Date of Admission: 04/27/18 - Admission Diagnoses Admission Diagnosis: (1) Abdominal pain (2) Nausea (3) s/p Partial gastrectomy - Discharge Date Discharge Date: 04/29/18 - Discharge Diagnoses Discharge Diagnosis: (1) Abdominal pain (2) Multiple gastric ulcers (3) Nausea (4) s/p Partial gastrectomy - Hospital Course Hospital Course: Day one, Ms. Roman is a 77 [address] patient of Dr[address] Luis who presented to the emergency room with complaints of abdominal pain and persistent nausea for the past 10 days. Patient reported undergoing exploratory laparotomy with partial gastrectomy and intraabdominal repair of left inguinal hernia on 03/18/2018. On arrival, vitals were 98.0-80-20-96%-169/70. Labs were obtained. Abnormal lab values included the following: hgb 11.8, hct 35.4, ast 13, albumin 3.3. Urinalysis revealed wbc 3-5, rbc 0-2, leukocytes 1+, bacteria 1+, occult blood 3 +. An abdomen/pelvis ct was obtained and revealed: Limited evaluation of the abdomen pelvis given lack of IV or oral contrast administration demonstrates no definite acute inflammatory process; there has been interval distal gastrectomy changes and anastomosis within the right upper quadrant; no free air or localizing fluid collection visualized within the abdomen or pelvis; Common bile duct dilatation with abrupt transition within distal common bile duct suspicious for underlying obstruction or stricture; Correlation with cholestatic function test and clinical history is needed; Left inguinal hernia containing a non-obstructed loop of small bowel is again noted; Moderate colonic diverticulosis without evidence of acute diverticulitis. She was given morphine 4mg IV x 1 and Zofran 4mg IV x1 in the emergency room with only slight improvement in pain. Medical History: Dementia, Gerd, Gastric Ulcer, GI Bleed, DM type II. Medications: Morphine 4mg IV x1, Zofran 4mg IV x1, Protonix 40mg IV daily, Morphine 2mg IV Q4hr PRN, Zofran 4mg IV Q6hr PRN, NS @100ml/hr, Requip 3mg po HS, Ambien 10mg po HS, Neurontin 600mg po TID. Abnormal Labs: Hgb 11.8, Hct 35.4, AST 13, Albumin 3.3, A/G Ratio 0.8. Urinalysis: Occult Blood 3+, Leuk Est 1+, RBC 0-2, WBC 3-5, Bacteria 1+, Mucus Rare She was admitted for further evaluation and treatment. We consulted Dr. Munson and started patient on normal saline at 100ml/hr, Morphine 2mg IV q4h prn, Zofran 4mg IV q6h prn, Protonix 40mg IV daily, and resumed home medications. We continued to monitor patient. Day two, Dr. Munson consulted with patient and took patient to OR for EGD. EGD reported: s/p gastrectomy with patent anastomosis, no marginal ulcers or strictures; multiple gastric ulcers, one is large about 3cm; No bleeding; Several biopsies obtained. Dr. Munson recommended to continue with Protonix IV bid, Carafate 1gm po tid, bland diet, small meals. We continued treatment and monitored. Day three, Patient reported that she was feeling better. She was alert and oriented upon rounds. She denied abdominal pain. Upon palpation, she was noted with only mild abdominal tenderness. Vital signs stable. Labs wnl. We planned for discharge. Instructions for medications and follow up were discussed with patient and family, both voiced understanding. Patient discharged home in stable condition with family. - Discharge Medications Discharge Medications: Home Medication List pantoprazole [Protonix] 40 mg PO BID #30 tab 04/29/18 [Rx] promethazine 25 mg PO Q6H PRN #30 tab 04/29/18 [Rx] Prescriptions: pantoprazole [Protonix] Dexter Arzola promethazine Dexter Arzola Home medications donepezil 1 tab PO DAILY 03/18/18 fluticasone 2 spr INTRANASAL DAILY 03/18/18 gabapentin 1 tab PO TID 03/18/18 lisinopril-hydrochlorothiazide 1 tab PO DAILY 03/18/18 meloxicam [Mobic] 1 tab PO DAILY PRN 03/18/18 metformin 2 tab PO AC 03/18/18 ropinirole [Requip] 1 tab PO HS 03/18/18 zolpidem [Ambien] 1 tab PO HS 03/18/18 hydrocodone-acetaminophen 1 tab PO Q6H PRN #90 tab 03/23/18 potassium chloride 20 meq PO DAILY #30 tab 03/23/18 sucralfate [Carafate] 1 g PO Q6H #120 tab 03/23/18 - Discharge Disposition Discharge Disposition: Patient is to follow up with Dr. Brothers in one week and with Dr. Munson in two weeks.
--- NOTE | 2018-06-07 21:40 | PCM.PROG ---
Progress Note - Progress Note for Day of Date of Exam: 04/28/18 - Subjective Subjective: WAS ADMITTED FOR COMPLAINTS OF ABDOMINAL PAIN FOR THE PAST 10 DAYS. TODAY, SHE IS ALERT AND ORIENTED, LYING IN BED ON MORNING ROUNDS. SHE CONTINUES WITH COMPLAINTS OF ABDOMINAL PAIN AND CRAMPING. ON EXAMINATION, HEART IS REGULAR IN RATE AND RHYTHM. BILATERAL LUNGS ARE NOTED WITH DIMINISHED LUNG SOUNDS THROUGHOUT. ABDOMEN IS ROUND, SOFT, AND NOTED WITH MILD, DIFFUSE TENDERNESS. NORMAL BOWEL SOUNDS ARE NOTED IN ALL QUADRANTS. HER VITALS TODAY ARE 98.2-70-18-97%-120/54. SHE IS HEMODYNAMICALLY STABLE TODAY. A KUB WAS OBTAINED AND REVEALED: The abdominal gas pattern is nonspecific and nonobstructive. No abnormal masses or abnormal calcifications are identified. Surgical clips are present in the right upper quadrant. Surgical sutures are present in the left upper quadrant. Pneumoperitoneum cannot be excluded on a supine film. HAS CONSULTED WITH PATIENT AND PLANS TO TAKE HER FOR AN EGD TODAY. OTHERWISE, WE WILL START PEPCID AND GI COCKTAIL AND CONTINUE TO MONITOR PATIENT. - Past Medical Family Social History Past Med/Fam/Surg Hx: No changes since H&P Allergies: Allergies No Known Drug Allergies Allergy (Verified 03/18/18 15:04) - Review of Systems ROS: No change since H&P - Vital Signs and I&O's Vital Signs: Temperature 98.9 F Pulse Rate [Left] 73 Pulse Rate 80 Respiratory Rate 18 Blood Pressure [RIGHT WRIST] 197/96 Blood Pressure [Left Arm] 134/64 Blood Pressure [Right Arm] 161/75 Blood Pressure 169/70 O2 Sat by Pulse Oximetry 97 - Physical Exam Oriented: Normal Eyes: Normal Ear: Normal Nose: Normal Throat: Normal Cardiovascular: Normal. negative: S3, S4, Murmur : Normal Auscultation: Bowel Sounds: Increased Palpation: Normal Tenderness: Diffuse, Moderate. negative: Rebound, Guarding, Rigidity Skin: Normal Musculoskeletal: Normal Psychiatric: Normal Mood Description: Calm Affect: Normal Speech Pattern: Clear, Appropriate - Laboratory and Diagnostics Result Diagrams: 04/29/18 05:25 04/29/18 05:25 Labs: Laboratory WBC 5.5 X10^3/uL (3.6-10.0) 04/29/18 05:25 RBC 3.26 X10^6/uL (3.5-5.4) L 04/29/18 05:25 Hgb 10.2 g/dL (12.0-16.0) L 04/29/18 05:25 Hct 29.9 % (36.0-47.0) L 04/29/18 05:25 MCV 91.7 fL (80.0-100.0) 04/29/18 05:25 MCH 31.2 pg (27.0-34.0) 04/29/18 05:25 MCHC 34.1 g/dL (33.0-35.0) 04/29/18 05:25 RDW 14.1 % (11.6-16.5) 04/29/18 05:25 Plt Count 272 X10^3/uL (150.0-450.0) 04/29/18 05:25 MPV 8.7 fL (7.4-11.0) 04/29/18 05:25 Neut % (Auto) 59.5 % (42.0-75.0) 04/29/18 05:25 Lymph % (Auto) 27.7 % (21.0-51.0) 04/29/18 05:25 [place] % (Auto) 6.8 % (0.0-13.0) 04/29/18 05:25 Eos % (Auto) 5.2 % (0.9-2.9) H 04/29/18 05:25 Baso % (Auto) 0.8 % (0.2-1.0) 04/29/18 05:25 Neut # (Auto) 3.3 x10^3/uL (2.2-4.8) 04/29/18 05:25 Lymph # (Auto) 1.5 X10^3/uL (1.3-2.9) 04/29/18 05:25 Rabun # (Auto) 0.4 x10^3/uL (0.3-0.8) 04/29/18 05:25 Eos # (Auto) 0.3 x10^3/uL (0.0-0.2) H 04/29/18 05:25 Baso # (Auto) 0.0 X10^3/uL (0.0-0.1) 04/29/18 05:25 Absolute Nucleated RBC 0.0 /100WBC 04/29/18 05:25 Sodium 141 mmol/L (136-145) 04/29/18 05:25 Corrected Sodium TNP 04/29/18 05:25 Potassium 4.1 mmol/L (3.5-5.1) 04/29/18 05:25 Chloride 106 mmol/L (98-107) 04/29/18 05:25 Carbon Dioxide 28.5 mmol/L (21-32) 04/29/18 05:25 BUN 11 mg/dL (7-18) 04/29/18 05:25 Creatinine 0.78 mg/dL (0.55-1.02) 04/29/18 05:25 Est GFR (MDRD) Af Amer > 60 (>60) 04/29/18 05:25 Est GFR (MDRD) Non-Af > 60 (>60) 04/29/18 05:25 Glucose 87 mg/dL (65-99) 04/29/18 05:25 POC Glucose (mg/dL) 81 mg/dL (65-99) 04/29/18 11:58 Calcium 8.6 mg/dL (8.5-10.1) 04/29/18 05:25 Corrected Calcium 9.7 mg/dL (8.5-10.1) 04/29/18 05:25 Total Bilirubin 0.30 mg/dL (0.2-1.0) 04/29/18 05:25 AST 12 Units/L (15-37) L 04/29/18 05:25 ALT 11 Units/L (12-78) L 04/29/18 05:25 Alkaline Phosphatase 46 Units/L (46-116) 04/29/18 05:25 Total Protein 6.0 g/dL (6.4-8.2) L 04/29/18 05:25 Albumin 2.6 g/dL (3.4-5.0) L 04/29/18 05:25 Globulin 3.4 g/dL (2.5-4.5) 04/29/18 05:25 Albumin/Globulin Ratio 0.8 Ratio (1.1-2.1) L 04/29/18 05:25 Amylase 53 Units/L (25-115) 04/27/18 15:11 Lipase 257 Units/L (73-393) 04/27/18 15:11 Specimen Type Clean catch urine 04/27/18 14:42 Urine Color Yellow (YELLOW) 04/27/18 14:42 Urine Appearance Clear (CLEAR) 04/27/18 14:42 Urine pH 5.0 (5.0 - 8.0) 04/27/18 14:42 Ur Specific [place] 1.020 (1.000-1.030) 04/27/18 14:42 Urine Protein Negative (NEGATIVE) 04/27/18 14:42 Urine Glucose (UA) Negative (NEGATIVE) 04/27/18 14:42 Urine Ketones Negative (NEGATIVE) 04/27/18 14:42 Urine Occult Blood 3+ (NEGATIVE) 04/27/18 14:42 Urine Nitrite Negative (NEGATIVE) 04/27/18 14:42 Urine Bilirubin Negative (NEGATIVE) 04/27/18 14:42 Urine Urobilinogen Normal (NORMAL) 04/27/18 14:42 Ur Leukocyte Esterase 1+ (NEGATIVE) 04/27/18 14:42 Urine RBC 0-2 /HPF (NONE SEEN) 04/27/18 14:42 Urine WBC 3-5 /HPF (NONE SEEN) 04/27/18 14:42 Ur Squamous Epith Cells Few /HPF (NEGATIVE) 04/27/18 14:42 Urine Bacteria 1+ /HPF (NEGATIVE) 04/27/18 14:42 Urine Mucus Rare /HPF (NEGATIVE) 04/27/18 14:42 Ur Culture Indicated? No/not indicated 04/27/18 14:42 Tissue Pathology To follow 04/28/18 10:53 - Plan (1) Abdominal pain Status: Acute Qualifiers: Abdominal location: generalized Qualified Code(s): R10.84 - Generalized abdominal pain Plan: EGD TODAY, MORPHINE PRN, ZOFRAN PRN, PEPCID, GI COCKTAIL, PROTONIX 40MG IV DAILY, CONSULT , CONTINUE TO MONITOR
== END 2018-04-29 12:10 | disposition home or self-care (01) ==
LOC: ER 13:55 → MED/SURG 13:55
PROVIDERS: ADMIT Internal Medicine; ATTEND Internal Medicine
DX: R10.84 Generalized abdominal pain; K25.4 Chronic or unspecified gastric ulcer with hemorrhage; Z90.3 Acquired absence of stomach [part of]; K57.90 Diverticulosis of intestine, part unspecified, without perforation or abscess without bleeding; E11.9 Type 2 diabetes mellitus without complications; K90.49 Malabsorption due to intolerance, not elsewhere classified; Z79.899 Other long term (current) drug therapy; K40.90 Unilateral inguinal hernia, without obstruction or gangrene, not specified as recurrent; Z93.4 Other artificial openings of gastrointestinal tract status; R11.2 Nausea with vomiting, unspecified; I10 Essential (primary) hypertension
CPT/HCPCS: 36415; 74000; 74018; 74176; 80053; 81001; 82150; 83690; 85025; 88305; 88342; 96365; 96374; 96375; 99100; 99283; 99284; A4216; A4222; C9113; S0028; A4217; G0378; J2270; J2405; J2704; J7030; J7120